=== PATIENT | female | born 1950 | race Caucasian/White ===

== ENCOUNTER 2017-03-07 21:22 | Inpatient (IN) | payer MEDICARE, OTHER ==
[~2017-03-07] VITALS: Ht 167.6 cm; Wt 97.5 kg
[2017-03-07 21:25] VITALS: BP 152/70; PULSE 91; RESP 16; TEMP 97.8; O2SAT 85
--- NOTE | 2017-03-07 21:42 | PD ---
HPI Chief Complaint: Respiratory Symptoms Time Seen by Provider: 21:31 Travel History International Travel<30 days: No Contact w/Intl Traveler<30days: No Traveled to known affect area: No History of Present Illness HPI 66-year-old female with history of COPD, 1 pack per day smoker, here for evaluation of cough and shortness of breath. Patient is visiting her family from [place]. Since January she has had 2 courses of antibiotics and is currently on a course of steroids for bronchitis. She was on Levaquin at first, then Keflex. Shortness of breath has worsened today at rest, worse with exertion. She has had a slight nonproductive cough. No hemoptysis. She denies chest pain. Dyspnea is at rest, worse with exertion. No history of DVT or PE. She is on Symbicort and takes albuterol nebulizer treatments. PFSH Past Medical History Respiratory: Yes (COPD) ?: Not Social History Tobacco Use: Yes Allergies-Medications (Allergen,Severity, Reaction): Coded Allergies: Sulfa (Sulfonamide Antibiotics) (Unverified Allergy, Severe, Nausea/ Vomiting, 03/08/17) codeine (Unverified Allergy, Mild, Nausea/Vomiting, 03/08/17) Reported Meds & Prescriptions Reported Meds & Active Scripts Active Review of Systems Except as stated in HPI: all other systems reviewed are Neg Physical Exam Narrative GENERAL: Well-developed, cachectic, mild to moderate respiratory distress SKIN: Focused skin assessment warm/dry. HEAD: Atraumatic. Normocephalic. EYES: Pupils equal and round. No scleral icterus. No injection or drainage. ENT: Mucous membranes pink and moist. NECK: Trachea midline. No JVD. CARDIOVASCULAR: Regular rate and rhythm. No murmur appreciated. RESPIRATORY: Mild to moderate respiratory distress, speaking full sentences, mild labored breathing with accessory muscle use with intercostal and supraclavicular retractions. Poor air movement bilaterally with wheezes throughout all lung bowers. No rales or rhonchi. GASTROINTESTINAL: Abdomen soft, non-tender, nondistended. MUSCULOSKELETAL: No obvious deformities. No clubbing. No cyanosis. No edema. No calf tenderness or swelling. NEUROLOGICAL: Awake and alert. No obvious cranial nerve deficits. Motor grossly within normal limits. Normal speech. PSYCHIATRIC: Appropriate mood and affect; insight and judgment normal. Data Data Last Documented VS Vital Signs Date Time Temp Pulse Resp B/P (MAP) Pulse Ox O2 Delivery O2 Flow Rate FiO2 03/07/17 22:44 82 16 133/67 (89) 97 Nasal Cannula 3.00 03/07/17 21:25 97.8 Orders Orders Complete Blood Count With Diff (03/07/17 21:39) Comprehensive Metabolic Panel (03/07/17 21:39) B-Type Natriuretic Peptide (03/07/17 21:39) Act Partial Throm Time (Ptt) (03/07/17 21:39) Prothrombin Time / Inr (Pt) (03/07/17 21:39) Ckmb (Isoenzyme) Profile (03/07/17 21:39) Troponin I (03/07/17 21:39) Influenzae A/B Antigen (03/07/17 21:39) Iv Access Insert/Monitor (03/07/17 21:39) Electrocardiogram (03/07/17 21:39) Ecg Monitoring (03/07/17 21:39) Oximetry (03/07/17 21:39) Oxygen Administration (03/07/17 21:39) Chest, Single Ap (03/07/17 21:39) Sodium Chloride 0.9% Flush (Ns Flush) (03/07/17 21:45) Methylprednisolone So Succ Inj (Solumedr (03/07/17 21:45) Albuterol-Ipratropium Neb (Duoneb Neb) (03/07/17 21:45) Arterial Blood Gas (Abg) (03/07/17 ) Sodium Chlor 0.9% 1000 Ml Inj (Ns 1000 M (03/07/17 22:34) CKMB (03/07/17 22:10) CKMB% (03/07/17 22:10) Ct Pulmonary Angiogram (03/07/17 23:09) Methylprednisolone So Succ Inj (Solumedr (03/08/17 00:00) Albuterol-Ipratropium Neb (Duoneb Neb) (03/07/17 23:15) Albuterol-Ipratropium Neb (Duoneb Neb) (03/08/17 08:00) Budeson-Formot 160-4.5 Mcg Inh (Symbicor (03/07/17 23:15) Guaifenesin Er (Mucinex Er) (03/08/17 09:00) Admit To Inpatient (03/07/17 ) Vital Signs (Adult) Q4H (03/07/17 23:08) Activity Oob Ad Sara (03/07/17 23:08) Diet Regular Basic (03/08/17 Breakfast) Sodium Chloride 0.9% Flush (Ns Flush) (03/07/17 23:15) Sodium Chloride 0.9% Flush (Ns Flush) (03/08/17 09:00) Ondansetron Inj (Zofran Inj) (03/07/17 23:15) Comprehensive Metabolic Panel (03/08/17 06:00) Complete Blood Count With Diff (03/08/17 06:00) Enoxaparin Inj (Lovenox Inj) (03/07/17 23:00) Acetaminophen (Tylenol) (03/07/17 23:15) Docusate Sodium-Senna (Radha-Colace) (03/08/17 09:00) Magnesium Hydroxide Liq (Milk Of Magnesi (03/07/17 23:15) Sennosides (Senokot) (03/07/17 23:15) Bisacodyl Supp (Dulcolax Supp) (03/07/17 23:15) Lactulose Liq (Lactulose Liq) (03/07/17 23:15) Inpatient Certification (03/07/17 ) Admit Order (Ed Use Only) (03/07/17 23:13) Labs Laboratory Tests Test 03/07/17 22:00 03/07/17 22:10 Blood Gas Puncture Site RT RADIAL Blood Gas Patient Temperature 98.6 Blood Gas HCO3 30 mmol/L Blood Gas Base Excess 5.1 mmol/L Blood Gas Oxygen Saturation 87 % Arterial Blood pH 7.35 Arterial Blood Partial Pressure CO2 56 mmHG Arterial Blood Partial Pressure O2 90 mmHG Arterial Blood Oxygen Content 16.9 Vol % Arterial Blood Carboxyhemoglobin 9.6 % Arterial Blood Methemoglobin 0.9 % Blood Gas Hemoglobin 13.8 G/DL Oxygen Delivery Device NASAL CANNULA Blood Gas Liter Flow 3 L/M White Blood Count 7.6 TH/MM3 Red Blood Count 4.45 MIL/MM3 Hemoglobin 13.4 GM/DL Hematocrit 41.9 % Mean Corpuscular Volume 94.2 FL Mean Corpuscular Hemoglobin 30.1 PG Mean Corpuscular Hemoglobin Concent 32.0 % Red Cell Distribution Width 12.7 % Platelet Count 197 TH/MM3 Mean Platelet Volume 6.4 FL Neutrophils (%) (Auto) 74.5 % Lymphocytes (%) (Auto) 12.8 % Monocytes (%) (Auto) 9.1 % Eosinophils (%) (Auto) 0.6 % Basophils (%) (Auto) 3.0 % Neutrophils # (Auto) 5.7 TH/MM3 Lymphocytes # (Auto) 1.0 TH/MM3 Monocytes # (Auto) 0.7 TH/MM3 Eosinophils # (Auto) 0.0 TH/MM3 Basophils # (Auto) 0.2 TH/MM3 CBC Comment DIFF FINAL Differential Comment Prothrombin Time 9.8 SEC Prothromb Time International Ratio 1.0 RATIO Activated Partial Thromboplast Time 28.2 SEC Blood Urea Nitrogen 14 MG/DL Creatinine 0.67 MG/DL Random Glucose 105 MG/DL Total Protein 6.8 GM/DL Albumin 3.6 GM/DL Calcium Level 8.1 MG/DL Alkaline Phosphatase 74 U/L Aspartate Amino Transf (AST/SGOT) 19 U/L Alanine Aminotransferase (ALT/SGPT) 23 U/L Total Bilirubin 0.8 MG/DL Sodium Level 127 MEQ/L Potassium Level 4.4 MEQ/L Chloride Level 90 MEQ/L Carbon Dioxide Level 32.5 MEQ/L Anion Gap 5 MEQ/L Estimat Glomerular Filtration Rate 88 ML/MIN Total Creatine Kinase 109 U/L Creatine Kinase MB 5.3 NG/ML Troponin I LESS THAN 0.02 NG/ML B-Type Natriuretic Peptide 43 PG/ML MDM Medical Decision Making Medical Screen Exam Complete: Yes Emergency Medical Condition: Yes Interpretation(s) EKG: Sinus, rate 91, normal axis, normal intervals, frequent supraventricular premature complexes, possible left atrial enlargement, no acute ischemic abnormality. Differential Diagnosis COPD exacerbation, pneumonia, pneumothorax, PE, ACS, bronchitis Narrative Course Patient's ABG shows a carboxyhemoglobinemia 9.6%. This is likely secondary to excessive smoking. PCO2 is 56.4, PO2 90.1 on 3 L nasal cannula Initial vital signs show heart rate 91, blood pressure 152/70, pulse ox 85% on room air, oral temp of 97.8F. CBC is essentially unremarkable. CMP is remarkable for sodium 127, chloride 90, bicarbonate 32.5, otherwise essentially unremarkable. Cardiac enzymes are negative. BNP is 43. Chest x-ray: CONCLUSION: Emphysema and patchy interstitial thickening. Patient was given 3 DuoNeb treatments and IV Solu-Medrol and reports feeling significantly improved. She has a slight carboxyhemoglobinemia which is likely secondary to heavy smoking. Because of her history of COPD, and set of high flow oxygen with 100% nonrebreather, she will be kept on 3 L nasal cannula. She is no longer in any respiratory distress after the 3 DuoNeb treatments, however she does have some slight end expiratory wheezes bilaterally. Chest x- ray does shows some granulomatous calcifications. CT of the chest will be ordered to look for cancer as she is also slightly hyponatremic. CT pulmonary angiogram will be done to also rule out a PE, however my suspicion is low for this. This study is pending at time of admission. Urine legionella antigen also ordered and is pending at time of admission. Case discussed with hospitalist Dr. Collins who will admit the patient to her service for further treatment and evaluation. Both the patient and the patient's daughter were made aware of all findings and plan and are amenable. Diagnosis Primary Impression: COPD exacerbation Additional Impressions: Carboxyhemoglobinemia Qualified Codes: T58.91XA - Toxic effect of carbon monoxide from unspecified source, accidental (unintentional), initial encounter Hyponatremia Admitting Information Admitting Physician Requests: Observation Antonio Frost MD Mar 07, 2017 21:42
[2017-03-07] MEDS ORDERED: SODIUM CHLORIDE 0.9% FLUSH 10 ML FLUSH IVF PRN (21:45)
[2017-03-07] MEDS ORDERED: methylPREDNISolone SOD SUCC 125 MG/2 ML VIAL IV PUSH ONE (21:45)
[2017-03-07] MEDS: RESP: ALBUTEROL 2.5 MG/IPRATROPIUM 0.5 MG NEB (SCH) INH ×2 (21:52→21:53)
[2017-03-07 22:05] VITALS: O2SAT 97
[2017-03-07 22:19] VITALS: O2SAT 98
[2017-03-07 22:24] LABS: AUTOMATED NEUTROPHIL # 5.7 TH/MM3 (1.8-7.7); BASOPHIL # 0.2 TH/MM3 (0-0.2); EOSINOPHIL % 0.6 % (0.0-4.0); HEMATOCRIT 41.9 % (35.0-46.0); HEMOGLOBIN 13.4 GM/DL (11.6-15.3); LYMPH % 12.8 % (9.0-44.0); MEAN CELL VOLUME 94.2 FL (80.0-100.0); MEAN CORPUSCULAR HEMOGLOBIN 30.1 PG (27.0-34.0); MEAN PLATELET VOLUME 6.4 FL (7.0-11.0); MONO % 9.1 % (0.0-8.0); MONOCYTE # 0.7 TH/MM3 (0-0.9); NEUT % 74.5 % (16.0-70.0); PLATELET COUNT 197 TH/MM3 (150-450); RED BLOOD COUNT 4.45 MIL/MM3 (4.00-5.30); RED CELL DISTRIBUTION WIDTH 12.7 % (11.6-17.2); WHITE BLOOD COUNT 7.6 TH/MM3 (4.0-11.0)
[2017-03-07 22:33] LABS: CHLORIDE 90 MEQ/L (98-107); SODIUM (NA) 127 MEQ/L (136-145)
[2017-03-07 22:36] LABS: CALCIUM 8.1 MG/DL (8.5-10.1)
[2017-03-07 22:37] LABS: ALBUMIN 3.6 GM/DL (3.4-5.0); BICARBONATE 32.5 MEQ/L (21.0-32.0); BLOOD UREA NITROGEN 14 MG/DL (7-18); GLUCOSE,RANDOM 105 MG/DL (74-106)
[2017-03-07] MEDS: SODIUM CHLOR 0.9% 1000 ML INJ 1,000 ML IV SCH (22:37)
[2017-03-07 22:39] LABS: PROTHROMBIN TIME - PATIENT 9.8 SEC (9.8-11.6)
[2017-03-07 22:40] LABS: ALT (GPT) 23 U/L (10-53); AST (GOT) 19 U/L (15-37); CREATININE 0.67 MG/DL (0.50-1.00); GLOMERULAR FILTRATION RATE 88 ML/MIN (>89)
[2017-03-07 22:41] LABS: TOTAL BILIRUBIN ADULT 0.8 MG/DL (0.2-1.0); TOTAL PROTEIN 6.8 GM/DL (6.4-8.2)
[2017-03-07 22:43] LABS: ALKALINE PHOSPHATASE 74 U/L (45-117)
[2017-03-07 22:44] VITALS: BP 133/67; PULSE 82; RESP 16; O2SAT 97
[2017-03-07 22:45] LABS: TROPONIN I LESS THAN 0.02 NG/ML (0.02-0.05)
--- NOTE | 2017-03-07 23:02 | RADRPT ---
EXAM DATE/TIME: 03/07/2017 22:32 [facility] COMPARISON: No previous studies available for comparison. INDICATIONS : Short of breath for two days. MEDICAL HISTORY : None. SURGICAL HISTORY : None. ENCOUNTER: Initial ACUITY: 2 days PAIN SCORE: 0/10 LOCATION: Bilateral chest FINDINGS: Moderate emphysema. Patchy mild interstitial thickening present bilaterally. Granulomatous calcificat ions in the left infrahilar region. No evidence of significant alveolar consolidation or pleural effu quita. Cardiac contours are satisfactory for technique and projection. CONCLUSION: Emphysema and patchy interstitial thickening. Julio Cohen MD on March 07, 2017 at 22:59 Board Certified Radiologist. This report was verified electronically.
[2017-03-07] MEDS ORDERED: ONDANSETRON HCL 4 MG/2 ML VIAL IVP PRN (23:15)
[2017-03-07] MEDS ORDERED: LACTULOSE SYRUP 20 GM/30 ML CUP PO PRN (23:15)
[2017-03-07] MEDS ORDERED: ACETAMINOPHEN 325 MG TAB PO PRN (23:15)
[2017-03-07] MEDS ORDERED: MAGNESIUM HYDROXIDE SUSP 30 ML CUP PO PRN (23:15)
[2017-03-07] MEDS ORDERED: BISACODYL 10 MG SUPP RECTAL PRN (23:15)
[2017-03-07] MEDS ORDERED: RESP: ALBUTEROL 2.5 MG/IPRATROPIUM 0.5 MG NEB (PRN) NEB (23:15)
[2017-03-07] MEDS ORDERED: SENNOSIDES 8.6 MG TAB PO PRN (23:15)
[2017-03-07] MEDS ORDERED: IOHEXOL 350 MG/ML 10 ML VIAL (for RAD DIAG) IVCONTRAST ONE (23:16)
[2017-03-07] MEDS: ENOXAPARIN SODIUM 40 MG/0.4 ML SYRINGE SQ SCH (23:42)
[2017-03-07 23:47] VITALS: BP 120/57; PULSE 103; RESP 16; O2SAT 95
--- NOTE | 2017-03-07 23:52 | RADRPT ---
EXAM DATE/TIME: 03/07/2017 23:20 [facility] COMPARISON: No previous studies available for comparison. INDICATIONS : Bronchitis, cough. IV CONTRAST: 74 cc Omnipaque 350 (iohexol) IV RADIATION DOSE: 5.48 CTDIvol (mGy) MEDICAL HISTORY : Chronic obstructive pulmonary disease. Hypertension. SURGICAL HISTORY : Tonsillectomy. Appendectomy.ganglion removed fropm rib ENCOUNTER: Initial ACUITY: 2 days PAIN SCALE: 0/10 LOCATION: chest TECHNIQUE: Volumetric scanning of the chest was performed using a pulmonary embolism protocol MIP images were re constructed. Using automated exposure control and adjustment of the mA and/or kV according to patien t size, radiation dose was kept as low as reasonably achievable to obtain optimal diagnostic quality images. DICOM format image data is available electronically for review and comparison. Follow-up recommendations for detected pulmonary nodules are based at a minimum on nodule size and pa tient risk factors according to Fleischner Society Guidelines. FINDINGS: PULMONARY ARTERIES: No filling defects are seen in the pulmonary arteries through the segmental level. LUNGS: Moderate severity centrilobular and paraseptal emphysema with upper lobe predominance. Mild patchy sc arring or atelectasis the upper lobes bilaterally. Mild tree in bud opacity in the lingula. No focal pulmonary consolidation. Hyperdensity is seen in the left lower lobe airways. Question aspirated [place] um. PLEURAE: There is no pleural thickening or pleural effusion. MEDIASTINUM: Coronary artery calcification. No enlarged lymph nodes. Trace pericardial effusion. Diffusely calcifi ed aorta. Aortic diameter are within normal limits. MUSCULOSKELETAL: Within normal limits for patient age. MISCELLANEOUS: The visualized upper abdominal organs demonstrate no acute abnormality. CONCLUSION: 1. No evidence of pulmonary most. 2. Moderate pulmonary emphysema. 3. Mild patchy atelectasis/inflammatory changes in the lungs. 4. Likely aspirated barium material in the left lower lobe. Bernard Mallory MD on March 07, 2017 at 23:46 Board Certified Radiologist. This report was verified electronically.
[2017-03-08] VITALS (9 sets, daily range): BP systolic 115–139; BP diastolic 53–69; PULSE 84–98; RESP 12–18; TEMP 96.6–97.8; O2SAT 93–99
[2017-03-08] MEDS: BUDESONIDE-FORMOTEROL 160/4.5 MCG INHALER INH SCH ×3 (00:02→21:24)
[2017-03-08] MEDS: methylPREDNISolone SOD SUCC 40 MG/1 ML VIAL IV PUSH SCH ×5 (00:03→23:11)
[2017-03-08] MEDS ORDERED: LISI-519 PO (01:14)
[2017-03-08] MEDS ORDERED: CITA20TA4 PO (01:14)
[2017-03-08] MEDS ORDERED: PRED20 PO (01:14)
[2017-03-08] MEDS ORDERED: IPRASOL INH (01:14)
[2017-03-08] MEDS ORDERED: VENTAER INH (01:14)
[2017-03-08] MEDS ORDERED: SYMB160A INH (01:14)
[2017-03-08] MEDS: SODIUM CHLORIDE 0.9% FLUSH 10 ML FLUSH IV FLUSH PRN ×2 (05:39→23:11)
[2017-03-08 05:59] LABS: AUTOMATED NEUTROPHIL # 4.4 TH/MM3 (1.8-7.7); BASOPHIL % 0.3 % (0.0-2.0); EOSINOPHIL % 0.6 % (0.0-4.0); HEMATOCRIT 41.2 % (35.0-46.0); HEMOGLOBIN 13.6 GM/DL (11.6-15.3); LYMPH % 3.5 % (9.0-44.0); LYMPHOCYTE # 0.2 TH/MM3 (1.0-4.8); MEAN CELL VOLUME 94.4 FL (80.0-100.0); MEAN CORPUSCULAR HEMOGLOBIN 31.1 PG (27.0-34.0); MEAN PLATELET VOLUME 6.8 FL (7.0-11.0); MONO % 0.7 % (0.0-8.0); NEUT % 94.9 % (16.0-70.0); PLATELET COUNT 184 TH/MM3 (150-450); RED BLOOD COUNT 4.36 MIL/MM3 (4.00-5.30); RED CELL DISTRIBUTION WIDTH 12.6 % (11.6-17.2); WHITE BLOOD COUNT 4.6 TH/MM3 (4.0-11.0)
[2017-03-08 06:05] LABS: CHLORIDE 94 MEQ/L (98-107); SODIUM (NA) 130 MEQ/L (136-145)
[2017-03-08 06:10] LABS: ALBUMIN 3.3 GM/DL (3.4-5.0); BICARBONATE 30.8 MEQ/L (21.0-32.0); CALCIUM 7.9 MG/DL (8.5-10.1)
[2017-03-08 06:11] LABS: BLOOD UREA NITROGEN 14 MG/DL (7-18); GLUCOSE,RANDOM 156 MG/DL (74-106)
[2017-03-08 06:14] LABS: ALT (GPT) 22 U/L (10-53); AST (GOT) 16 U/L (15-37); CREATININE 0.64 MG/DL (0.50-1.00); GLOMERULAR FILTRATION RATE 93 ML/MIN (>89)
[2017-03-08 06:15] LABS: TOTAL BILIRUBIN ADULT 0.5 MG/DL (0.2-1.0); TOTAL PROTEIN 6.5 GM/DL (6.4-8.2)
[2017-03-08 06:16] LABS: ALKALINE PHOSPHATASE 82 U/L (45-117)
[2017-03-08] MEDS: RESP: ALBUTEROL 2.5 MG/IPRATROPIUM 0.5 MG NEB (SCH) NEB ×4 (07:40→20:09)
--- NOTE | 2017-03-08 08:49 | HHI.HP ---
[facility] Unknown Admission Diagnosis COPD exacerbation, carboxyhemoglobinemia, hyponatremia Diagnoses: Chief Complaint: Shortness of breath Travel History International Travel<30 Days: No Contact w/Intl Traveler <30 Da: No Traveled to Known Affected Are: No History of Present Illness Written by Frances Johnson, acting as scribe for Dr. Anderson on 03/08/17 at 08:42. Ms. Jones is a 66-year-old female patient with a known medical history of COPD and tobacco abuse who presented to the ED with complaints of shortness of breath. Patient states that she went to urgent care for shortness of breath and chronic bronchitis, has been feeling "down" for 3 months. Does admit to wheezing and nonproductive cough. Does admit to lightheadedness and dizziness on presentation yesterday, Denies any recent fever, chills, headache, abdominal pain, nausea, vomiting, diarrhea, or dysuria. Denies any oxygen at home, did previously use O2 at home but has recently not needed it. Has recently moved here from [place] and has not established with a box stamper yet, COPD is a new diagnosis for her. Has recently completed a round of Levaquin and steroids 2 weeks ago which helped the patient. Does use nebulizer 4 x per day. Last hospitalized in May. Patient has recently stopped smoking and expressing motivation to get healthy. Going to establish a PCP in [facility]. Review of Systems Constitutional: DENIES: Fever, Chills Eyes: DENIES: Blurred vision, Diplopia Respiratory: COMPLAINS OF: Cough, Wheezing, Shortness of breath, DENIES: Sputum production Cardiovascular: DENIES: Chest pain Gastrointestinal: DENIES: Abdominal pain, Diarrhea, Nausea, Vomiting Genitourinary: DENIES: Urinary frequency, Urinary incontinence, Urgency Psychiatric: COMPLAINS OF: Anxiety Except as stated in HPI: all other systems reviewed are Neg Past Family Social History Past Medical History COPD Hypertension Anxiety Tobacco abuse Past Surgical History Appendectomy Tonsillectomy Ganglia on wrist Ankle surgery Reported Medications Active Reported Duoneb (Ipratropium-Albuterol Neb) 0.5-2.5 Mg/3 Ml Neb 1 Nebule INH DAILY Symbicort Inh (Budesonide/Formoterol Fumarate) 160-4.5 Mcg/Act Aero 2 Puff INH Q12HR Ventolin Hfa 18 GM Inh (Albuterol Sulfate) 90 Mcg/Act Aer 2 Puff INH Q4H PRN Prednisone 20 Mg Tab 20 Mg PO DIRECTED 40 MG twice a day x 3 days, then 20 MG daily x 3 days, then 10 MG daily x 3 days Citalopram (Citalopram Hydrobromide) 20 Mg Tab 20 Mg PO DAILY Lisinopril 5 Mg Tab 5 Mg PO DAILY Allergies: Coded Allergies: Sulfa (Sulfonamide Antibiotics) (Unverified Allergy, Severe, Nausea/ Vomiting, 03/08/17) codeine (Unverified Allergy, Mild, Nausea/Vomiting, 03/08/17) Active Ordered Medications Current Medications Medications (Trade) Dose Ordered Sig/Jenny Route Start Time Stop Time Status Last Admin (SoluMEDROL INJ) 40 mg Q6HR IV PUSH 03/08/17 00:00 03/08/17 05:39 (Duoneb Neb) 1 ampule Q2HR NEB PRN NEB 03/07/17 23:15 (Duoneb Neb) 1 ampule Q4HR WHILE AWAKE NEB NEB 03/08/17 08:00 03/08/17 07:40 (Symbicort 160-4.5 Mcg Inh) 2 puff Q12HR INH 03/07/17 23:15 03/08/17 00:02 (Mucinex Er) 600 mg BID PO 03/08/17 09:00 (NS Flush) 2 ml UNSCH PRN IV FLUSH 03/07/17 23:15 03/08/17 05:39 (NS Flush) 2 ml BID IV FLUSH 03/08/17 09:00 (Zofran Inj) 4 mg Q6H PRN IVP 03/07/17 23:15 (Lovenox Inj) 40 mg Q24H SQ 03/07/17 23:00 03/07/17 23:42 (Tylenol) 650 mg Q6H PRN PO 03/07/17 23:15 (Radha-Colace) 1 tab BID PO 03/08/17 09:00 (Milk Of Magnesia Liq) 30 ml Q12H PRN PO 03/07/17 23:15 (Senokot) 17.2 mg Q12H PRN PO 03/07/17 23:15 (Dulcolax Supp) 10 mg DAILY PRN RECTAL 03/07/17 23:15 (Lactulose Liq) 30 ml DAILY PRN PO 03/07/17 23:15 Family History Paternal medical history significant for blood clot. Maternal medical history significant for emphysema. Social History Smoked 1 ppd since the age of 13, has recently stopped smoking. Does admit to drinking a couple glasses of alcohol per day. Denies any illicit drug use. Physical Exam Vital Signs Vital Signs Date Time Temp Pulse Resp B/P (MAP) Pulse Ox O2 Delivery O2 Flow Rate FiO2 03/08/17 07:42 97 Nasal Cannula 3.00 03/08/17 04:00 97.3 84 18 115/53 (73) 94 03/08/17 01:03 88 16 120/56 (77) 98 Nasal Cannula 3.00 03/08/17 00:25 88 16 98 Nasal Cannula 3.00 03/08/17 00:00 97.3 84 18 115/53 (73) 94 03/07/17 23:47 103 16 120/57 (78) 95 Nasal Cannula 3.00 03/07/17 22:44 82 16 133/67 (89) 97 Nasal Cannula 3.00 03/07/17 22:19 98 Nasal Cannula 3.00 03/07/17 22:19 98 Nasal Cannula 3.00 03/07/17 22:05 97 Nasal Cannula 3.00 03/07/17 21:35 77 22 95 Nasal Cannula 3.00 03/07/17 21:25 97.8 91 16 152/70 (97) 85 Physical Exam GENERAL: This is a well-nourished, well-developed female patient, lying in bed on supplemental O2 2LNC, in no apparent distress. SKIN: No rashes, ecchymoses or lesions. Warm and dry. HEAD: Atraumatic. Normocephalic. EYES: Pupils equal round and reactive. Extraocular motions intact. No scleral icterus. No injection or drainage. ENT: Nose without bleeding, purulent drainage or septal hematoma. Throat without erythema, tonsillar hypertrophy or exudate. Uvula midline. Airway patent. NECK: Trachea midline. No JVD. Supple. CARDIOVASCULAR: Regular rate and rhythm without murmurs, gallops, or rubs. RESPIRATORY: Scattered diffused expiratory wheezing in posterior lung bowers. Breath sounds equal bilaterally. No wheezes, rales, or rhonchi. GASTROINTESTINAL: Abdomen soft, non-tender, nondistended. No guarding. Active Bs x 4 q. MUSCULOSKELETAL: Extremities without clubbing, cyanosis, or edema. No joint tenderness, effusion, or edema noted. NEUROLOGICAL: Awake and alert. Cranial nerves II through XII intact. Motor and sensory grossly within normal limits. Five out of 5 muscle strength in all muscle groups. Normal speech. Laboratory Laboratory Tests Test 03/07/17 22:00 03/07/17 22:10 03/08/17 05:25 Blood Gas Puncture Site RT RADIAL Blood Gas Patient Temperature 98.6 Blood Gas HCO3 30 Blood Gas Base Excess 5.1 Blood Gas Oxygen Saturation 87 Arterial Blood pH 7.35 Arterial Blood Partial Pressure CO2 56 Arterial Blood Partial Pressure O2 90 Arterial Blood Oxygen Content 16.9 Arterial Blood Carboxyhemoglobin 9.6 Arterial Blood Methemoglobin 0.9 Blood Gas Hemoglobin 13.8 Oxygen Delivery Device NASAL CANNULA Blood Gas Liter Flow 3 White Blood Count 7.6 4.6 Red Blood Count 4.45 4.36 Hemoglobin 13.4 13.6 Hematocrit 41.9 41.2 Mean Corpuscular Volume 94.2 94.4 Mean Corpuscular Hemoglobin 30.1 31.1 Mean Corpuscular Hemoglobin Concent 32.0 33.0 Red Cell Distribution Width 12.7 12.6 Platelet Count 197 184 Mean Platelet Volume 6.4 6.8 Neutrophils (%) (Auto) 74.5 94.9 Lymphocytes (%) (Auto) 12.8 3.5 Monocytes (%) (Auto) 9.1 0.7 Eosinophils (%) (Auto) 0.6 0.6 Basophils (%) (Auto) 3.0 0.3 Neutrophils # (Auto) 5.7 4.4 Lymphocytes # (Auto) 1.0 0.2 Monocytes # (Auto) 0.7 0.0 Eosinophils # (Auto) 0.0 0.0 Basophils # (Auto) 0.2 0.0 CBC Comment DIFF FINAL DIFF FINAL Differential Comment Prothrombin Time 9.8 Prothromb Time International Ratio 1.0 Activated Partial Thromboplast Time 28.2 Blood Urea Nitrogen 14 14 Creatinine 0.67 0.64 Random Glucose 105 156 Total Protein 6.8 6.5 Albumin 3.6 3.3 Calcium Level 8.1 7.9 Alkaline Phosphatase 74 82 Aspartate Amino Transf (AST/SGOT) 19 16 Alanine Aminotransferase (ALT/SGPT) 23 22 Total Bilirubin 0.8 0.5 Sodium Level 127 130 Potassium Level 4.4 5.1 Chloride Level 90 94 Carbon Dioxide Level 32.5 30.8 Anion Gap 5 5 Estimat Glomerular Filtration Rate 88 93 Total Creatine Kinase 109 Creatine Kinase MB 5.3 Troponin I LESS THAN 0.02 B-Type Natriuretic Peptide 43 Date/Time Source Procedure Growth Status 03/07/17 22:20 Nasal Washing Influenza Types A,B Antigen (FROILAN) - Final NEGATIVE FOR FLU A AND B ANTIGEN.... Complete 03/08/17 00:35 Urine Clean Catch Legionella Antigen Pending Received Result Diagram: 03/08/17 0525 03/08/17 [address] Angiography 03/07/172308 Signed Impressions: Service Date/Time: February 23:20 - CONCLUSION: 1. No evidence of pulmonary most. 2. Moderate pulmonary emphysema. 3. Mild patchy atelectasis/inflammatory changes in the lungs. 4. Likely aspirated barium material in the left lower lobe. Bernard Mallory MD Chest X-Ray 03/07/172138 Signed Impressions: Service Date/Time: February 22:32 - CONCLUSION: Emphysema and patchy interstitial thickening. Julio Cohen MD Septic Shock Reassessment Septic shock perfusion: reassessment completed Caprini VTE Risk Assessment Caprini VTE Risk Assessment: Mod/High Risk (score >= 2) Caprini Risk Assessment Model Point Value = 1 Point Value = 2 Point Value = 3 Point Value = 5 Age 41-60 Minor surgery BMI > 25 kg/m2 Swollen legs Varicose veins or History of unexplained or recurrent spontaneous Oral contraceptives or hormone replacement Sepsis (< 1 month) Serious lung disease, including pneumonia (< 1 month) Abnormal pulmonary function Acute myocardial infarction Congestive heart failure (< 1 month) History of inflammatory bowel disease Medical patient at bed rest Age 61-74 Arthroscopic surgery Major open surgery (> 45 min) Laparoscopic surgery (> 45 min) Malignancy Confined to bed (> 72 hours) Immobilizing plaster cast Central venous access Age >= 75 History of VTE Family history of VTE Factor V Leiden Prothrombin [id number] Lupus anticoagulant Anticardiolipin antibodies Elevated serum homocysteine Heparin-induced thrombocytopenia Other congenital or acquired thrombophilia Stroke (< 1 month) Elective arthroplasty Hip, pelvis, or leg fracture Acute spinal cord injury (< 1 month) Prophylaxis Regimen Total Risk Factor Score Risk Level Prophylaxis Regimen 0-1 Low Early ambulation 2 Moderate Order ONE of the following: *Sequential Compression Device (SCD) *Heparin 5000 units SQ BID 3-4 Higher Order ONE of the following medications: *Heparin 5000 units SQ TID *Enoxaparin/Lovenox 40 mg SQ daily (WT < 150 kg, CrCl > 30 mL/min) *Enoxaparin/Lovenox 30 mg SQ daily (WT < 150 kg, CrCl > 10-29 mL/min) *Enoxaparin/Lovenox 30 mg SQ BID (WT < 150 kg, CrCl > 30 mL/min) AND/OR *Sequential Compression Device (SCD) 5 or more Highest Order ONE of the following medications: *Heparin 5000 units SQ TID (Preferred with Epidurals) *Enoxaparin/Lovenox 40 mg SQ daily (WT < 150 kg, CrCl > 30 mL/min) *Enoxaparin/Lovenox 30 mg SQ daily (WT < 150 kg, CrCl > 10-29 mL/min) *Enoxaparin/Lovenox 30 mg SQ BID (WT < 150 kg, CrCl > 30 mL/min) AND *Sequential Compression Device (SCD) Assessment and Plan Problem List: (1) COPD exacerbation ICD Code: J44.1 - Chronic obstructive pulmonary disease with (acute) exacerbation Status: Acute (2) Carboxyhemoglobinemia ICD Code: T58.91XA - Toxic effect of carbon monoxide from unspecified source, accidental (unintentional), initial encounter Status: Acute (3) Hyponatremia ICD Code: E87.1 - Hypo-osmolality and hyponatremia Status: Acute Assessment and Plan Ms. Jones is a 66-year-old female patient with a known medical history of COPD and tobacco abuse who presented to the ED with complaints of shortness of breath. Acute on chronic COPD in exacerbation Cough suspect secondary to above CXR reviewed showing emphysema and patchy interstitial thickening. CTA reviewed showing no evidence of PE. Moderate pulmonary emphysema. Mild patchy atelectasis/inflammatory changes in the lungs. Likely aspirated barium content in the left lower lobe. Blood gas reviewed, ph 7.35. Co2 56. Carboxyhemoglobin 9.6. Currently on 3 L NC, continue supplemental O2 as needed. Duonebs available scheduled and PRN. Continue home inhalers. Continue scheduled Methylprednisolone 40 mg IV q6hr Will continue guaifenesin for congestion. Supportive care. Hyponatremia: Na 127 --> 130. Improving. Now tolerating eating and drinking. Monitor fluid status. Tobacco abuse: Counselled on cessation. DVT prophylaxis: SCDs. Lovenox. This note was transcribed by JOSLEYN Bro . I, Dr. Linda Anderson personally performed the history, physical exam, and medical decision making; and confirmed the accuracy of the information in the transcribed note. Authenticated by Dr. Linda Anderson on 03/08/17 at 08:42. Physician Certification 2 Midnight Certification Type: Admission for Inpatient Services Order for Inpatient Services The services are ordered in accordance with Medicare regulations or non- Medicare payer requirements, as applicable. In the case of services not specified as inpatient-only, they are appropriately provided as inpatient services in accordance with the 2-midnight benchmark. Estimated LOS (days): 2 2 days is the estimated time the patient will need to remain in the hospital, assuming treatment plan goals are met and no additional complications. Post-Hospital Plan: Home Problem Qualifiers (1) Carboxyhemoglobinemia: Qualified Codes: T58.91XA - Toxic effect of carbon monoxide from unspecified source, accidental (unintentional), initial encounter Francse Johnson Mar 08, 2017 08:49 Linda Anderson MD Mar 08, 2017 20:07
[2017-03-08] MEDS: SODIUM CHLOR 0.9% 1000 ML INJ 1,000 ML IV SCH (10:27)
[2017-03-08] MEDS: DOCUSATE SODIUM 50 MG/SENNA 8.6 MG TAB PO SCH ×3 (10:28→21:23)
[2017-03-08] MEDS: SODIUM CHLORIDE 0.9% FLUSH 10 ML FLUSH IV FLUSH SCH ×2 (10:28→21:22)
[2017-03-08] MEDS: guaiFENesin E.R. 600 MG TAB PO SCH ×2 (10:28→21:23)
--- NOTE | 2017-03-08 14:08 | EKG ---
Date Performed: 03/07/2017 Time Performed: 21:50:13 PTAGE: 66 years EKG: Sinus rhythm WITH FREQUENT SUPRAVENTRICULAR PREMATURE COMPLEXES POSSIBLE LEFT ATRIAL ENLARGEMENT ABNORMAL RHYTHM ECG NO PREVIOUS TRACING DOCTOR: Davin Robles Interpretating Date/Time 03/08/2017 14:06:48
[2017-03-08] MEDS: ENOXAPARIN SODIUM 40 MG/0.4 ML SYRINGE SQ SCH (23:11)
[2017-03-09] VITALS (7 sets, daily range): BP systolic 119–162; BP diastolic 59–75; PULSE 72–106; RESP 18–20; TEMP 96.3–98.2; O2SAT 94–99
[2017-03-09] MEDS: SODIUM CHLORIDE 0.9% FLUSH 10 ML FLUSH IV FLUSH PRN (06:17)
[2017-03-09] MEDS: methylPREDNISolone SOD SUCC 40 MG/1 ML VIAL IV PUSH SCH ×3 (06:17→18:33)
[2017-03-09] MEDS: RESP: ALBUTEROL 2.5 MG/IPRATROPIUM 0.5 MG NEB (SCH) NEB ×4 (07:35→19:57)
--- NOTE | 2017-03-09 08:44 | HHI.PR ---
Subjective Remarks Feels better, less wheezing, no chest pain shortness of breath has improved significantly. Says she has oxygen back home however she did not bring the machine with her here. She failed the walking test. No fever or chills overnight Objective Vitals Vital Signs Date Time Temp Pulse Resp B/P (MAP) Pulse Ox O2 Delivery O2 Flow Rate FiO2 03/09/17 07:35 95 Nasal Cannula 2.00 03/09/17 00:00 96.3 106 18 119/68 (85) 98 03/08/17 20:09 94 Nasal Cannula 2.00 03/08/17 20:00 97.5 93 18 133/60 (84) 95 03/08/17 16:00 97.8 88 16 137/62 (87) 93 03/08/17 12:00 97.8 98 12 139/68 (91) 94 I/O 03/08/17 03/08/17 03/08/17 03/09/17 03/09/17 03/09/17 07:00 15:00 23:00 07:00 15:00 23:00 Intake Total 853 ml 120 ml 1625 ml 240 ml Balance 853 ml 120 ml 1625 ml 240 ml Intake Oral 340 ml 120 ml 240 ml 240 ml IV Total 513 ml 1385 ml # Voids 3 7 3 # Bowel Movements 0 2 Result Diagram: 03/08/1752403/08/[address] Angiography 03/07/172308 Signed Impressions: Service Date/Time: February 23:20 - CONCLUSION: 1. No evidence of pulmonary most. 2. Moderate pulmonary emphysema. 3. Mild patchy atelectasis/inflammatory changes in the lungs. 4. Likely aspirated barium material in the left lower lobe. Bernard Mallory MD Chest X-Ray 03/07/172138 Signed Impressions: Service Date/Time: February 22:32 - CONCLUSION: Emphysema and patchy interstitial thickening. Julio Cohen MD Objective Remarks GENERAL: This is a well-nourished, well-developed female patient, lying in bed on supplemental O2 2LNC, in no apparent distress. CARDIOVASCULAR: Regular rate and rhythm without murmurs, gallops, or rubs. RESPIRATORY: Scattered diffused expiratory wheezing in posterior lung bowers. Breath sounds equal bilaterally. No wheezes, rales, or rhonchi. GASTROINTESTINAL: Abdomen soft, non-tender, nondistended. No guarding. Active Bs x 4 q. MUSCULOSKELETAL: Extremities without clubbing, cyanosis, or edema. No joint tenderness, effusion, or edema noted. NEUROLOGICAL: Awake and alert. Cranial nerves II through XII intact. Motor and sensory grossly within normal limits. Five out of 5 muscle strength in all muscle groups. Normal speech. A/P Problem List: (1) COPD exacerbation ICD Code: J44.1 - Chronic obstructive pulmonary disease with (acute) exacerbation Status: Acute (2) Carboxyhemoglobinemia ICD Code: T58.91XA - Toxic effect of carbon monoxide from unspecified source, accidental (unintentional), initial encounter Status: Acute (3) Hyponatremia ICD Code: E87.1 - Hypo-osmolality and hyponatremia Status: Acute Assessment and Plan Ms. Jones is a 66-year-old female patient with a known medical history of COPD and tobacco abuse who presented to the ED with complaints of shortness of breath. Acute on chronic COPD in exacerbation Cough suspect secondary to above CXR reviewed showing emphysema and patchy interstitial thickening. CTA reviewed showing no evidence of PE. Moderate pulmonary emphysema. Mild patchy atelectasis/inflammatory changes in the lungs. Likely aspirated barium content in the left lower lobe. Blood gas reviewed, ph 7.35. Co2 56. Carboxyhemoglobin 9.6. Currently on 3 L NC, continue supplemental O2 as needed. Duonebs available scheduled and PRN. Continue home inhalers. Continue scheduled Methylprednisolone 40 mg IV q6hr Will continue guaifenesin for congestion. Supportive care. Hyponatremia: Na 127 on admission, Improving. Now tolerating eating and drinking. Monitor fluid status. Tobacco abuse: Counselled on cessation. DVT prophylaxis: SCDs. Lovenox. Failed oxygen walking test needs oxygen at home case management consulted for discharge planning Discharge Planning DC home in stable condition to follow up as OP with PCP and consultants. Diet: Healthy heart diet Activity ad darshana as tolerated Meds per med reconciliations Problem Qualifiers (1) Carboxyhemoglobinemia: Qualified Codes: T58.91XA - Toxic effect of carbon monoxide from unspecified source, accidental (unintentional), initial encounter Linda Anderson MD Mar 09, 2017 08:44
[2017-03-09] MEDS: DOCUSATE SODIUM 50 MG/SENNA 8.6 MG TAB PO SCH ×2 (08:52→21:00)
[2017-03-09] MEDS: BUDESONIDE-FORMOTEROL 160/4.5 MCG INHALER INH SCH ×2 (08:53→21:45)
[2017-03-09] MEDS: SODIUM CHLORIDE 0.9% FLUSH 10 ML FLUSH IV FLUSH SCH ×2 (08:53→21:45)
[2017-03-09] MEDS: guaiFENesin E.R. 600 MG TAB PO SCH ×2 (08:53→21:46)
[2017-03-09 11:11] LABS: BICARBONATE 29.9 MEQ/L (21.0-32.0); CALCIUM 7.9 MG/DL (8.5-10.1); CREATININE 0.81 MG/DL (0.50-1.00)
[2017-03-09] MEDS ORDERED: PRED20 PO (13:27)
--- NOTE | 2017-03-09 13:28 | HHI.DCPOC ---
Discharge Care Plan Goals to Promote Your Health * To prevent worsening of your condition and complications * To maintain your health at the optimal level Directions to Meet Your Goals Take your medications as prescribed Follow your dietary instruction Follow activity as directed Keep your appointments as scheduled Take your immunizations and boosters as scheduled If your symptoms worsen call your PCP, if no PCP go to Urgent Care Center or Emergency Room Smoking is Dangerous to Your Health. Avoid second hand smoke Call the 24-hour hour crisis hotline for domestic abuse at Linda Anderson MD Mar 09, 2017 13:28
[2017-03-09] MEDS ORDERED: CEFU1TAB18 PO (13:30)
[2017-03-09] MEDS ORDERED: LACTCHW3 CHEW (13:30)
[2017-03-09] MEDS ORDERED: OXYGENDME NAS.CANULA (13:31)
[2017-03-09] MEDS ORDERED: Albuterol-Ipratropium Neb NEB (15:22)
[2017-03-09] MEDS: ENOXAPARIN SODIUM 40 MG/0.4 ML SYRINGE SQ SCH (21:46)
[2017-03-10] VITALS: BP 132/63; PULSE 82; RESP 20; TEMP 96.7; O2SAT 95
[2017-03-10] MEDS: methylPREDNISolone SOD SUCC 40 MG/1 ML VIAL IV PUSH SCH ×3 (01:01→11:48)
[2017-03-10] MEDS: SODIUM CHLORIDE 0.9% FLUSH 10 ML FLUSH IV FLUSH PRN (01:01)
[2017-03-10] MEDS: RESP: ALBUTEROL 2.5 MG/IPRATROPIUM 0.5 MG NEB (SCH) NEB ×3 (07:27→16:23)
[2017-03-10 07:30] VITALS: O2SAT 98
[2017-03-10 08:00] VITALS: BP 147/69; PULSE 92; RESP 20; TEMP 96.8; O2SAT 91
--- NOTE | 2017-03-10 09:32 | HHI.PR ---
Subjective Remarks Feels much better. no more wheezing. No n/v/d/c. 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 No fever or chills. Awaiting for O2 delivery as patient failed O2 test and required O2 at home Objective Vitals Vital Signs Date Time Temp Pulse Resp B/P (MAP) Pulse Ox O2 Delivery O2 Flow Rate FiO2 03/10/17 08:00 96.8 92 20 147/69 (95) 91 03/10/17 07:30 98 Nasal Cannula 2.00 03/10/17 00:00 96.7 82 20 132/63 (86) 95 03/09/17 20:00 97.0 91 20 142/70 (94) 95 03/09/17 19:57 97 Nasal Cannula 2.00 03/09/17 15:50 97.3 82 20 155/74 (101) 94 03/09/17 11:50 98.2 84 20 129/59 (82) 96 I/O 03/09/17 03/09/17 03/09/17 03/10/17 03/10/17 03/10/17 07:00 15:00 23:00 07:00 15:00 23:00 Intake Total 240 ml 1410 ml 480 ml Balance 240 ml 1410 ml 480 ml Intake Oral 240 ml 1410 ml 480 ml # Voids 3 7 3 # Bowel Movements 1 1 Result Diagram: 03/08/17 0525 03/09/17 0956 Objective Remarks GENERAL: This is a well-nourished, well-developed female patient, lying in bed on supplemental O2 2LNC, in no apparent distress. CARDIOVASCULAR: Regular rate and rhythm without murmurs, gallops, or rubs. RESPIRATORY: Scattered diffused expiratory wheezing in posterior lung bowers. Breath sounds equal bilaterally. No wheezes, rales, or rhonchi. GASTROINTESTINAL: Abdomen soft, non-tender, nondistended. No guarding. Active Bs x 4 q. MUSCULOSKELETAL: Extremities without clubbing, cyanosis, or edema. No joint tenderness, effusion, or edema noted. NEUROLOGICAL: Awake and alert. Cranial nerves II through XII intact. Motor and sensory grossly within normal limits. Five out of 5 muscle strength in all muscle groups. Normal speech. A/P Problem List: (1) COPD exacerbation ICD Code: J44.1 - Chronic obstructive pulmonary disease with (acute) exacerbation Status: Acute (2) Carboxyhemoglobinemia ICD Code: T58.91XA - Toxic effect of carbon monoxide from unspecified source, accidental (unintentional), initial encounter Status: Acute (3) Hyponatremia ICD Code: E87.1 - Hypo-osmolality and hyponatremia Status: Acute Assessment and Plan Ms. Jones is a 66-year-old female patient with a known medical history of COPD and tobacco abuse who presented to the ED with complaints of shortness of breath. Acute on chronic COPD in exacerbation Cough suspect secondary to above CXR reviewed showing emphysema and patchy interstitial thickening. CTA reviewed showing no evidence of PE. Moderate pulmonary emphysema. Mild patchy atelectasis/inflammatory changes in the lungs. Likely aspirated barium content in the left lower lobe. Blood gas reviewed, ph 7.35. Co2 56. Carboxyhemoglobin 9.6. Currently on 3 L NC, continue supplemental O2 as needed. Duonebs available scheduled and PRN. Continue home inhalers. Continue scheduled Methylprednisolone 40 mg IV q6hr Will continue guaifenesin for congestion. Supportive care. Hyponatremia: Na 127 on admission, Improving. Now tolerating eating and drinking. Monitor fluid status. Tobacco abuse: Counselled on cessation. DVT prophylaxis: SCDs. Lovenox. Failed oxygen walking test needs oxygen at home case management consulted for discharge planning Discharge Planning DC home in stable condition to follow up as OP with PCP and consultants. Diet: Healthy heart diet Activity ad darshana as tolerated Meds per med reconciliations Problem Qualifiers (1) Carboxyhemoglobinemia: Qualified Codes: T58.91XA - Toxic effect of carbon monoxide from unspecified source, accidental (unintentional), initial encounter Linda Anderson MD Mar 10, 2017 09:32
[2017-03-10] MEDS: BUDESONIDE-FORMOTEROL 160/4.5 MCG INHALER INH SCH (11:48)
[2017-03-10] MEDS: DOCUSATE SODIUM 50 MG/SENNA 8.6 MG TAB PO SCH (11:49)
[2017-03-10] MEDS: SODIUM CHLORIDE 0.9% FLUSH 10 ML FLUSH IV FLUSH SCH (11:49)
[2017-03-10] MEDS: guaiFENesin E.R. 600 MG TAB PO SCH (11:49)
[2017-03-10 12:00] VITALS: BP 138/77; PULSE 87; RESP 20; TEMP 97.7; O2SAT 95
[2017-03-10] MEDS ORDERED: VENTAER INH (14:22)
[2017-03-10] MEDS ORDERED: IPRASOL INH (14:22)
[2017-03-10] MEDS ORDERED: SYMB160A INH (14:22)
[2017-03-10 16:00] VITALS: BP 162/81; PULSE 80; RESP 20; TEMP 97.7; O2SAT 94
--- NOTE | 2017-03-11 00:26 | HHI.DS ---
Discharge Summary Admission Date Mar 07, 2017 at 23:15 Discharge Date: Mar 10, 2017 Admitting Diagnosis COPD exacerbation, carboxyhemoglobinemia, hyponatremia (1) COPD exacerbation ICD Code: J44.1 - Chronic obstructive pulmonary disease with (acute) exacerbation Status: Acute (2) Carboxyhemoglobinemia ICD Code: T58.91XA - Toxic effect of carbon monoxide from unspecified source, accidental (unintentional), initial encounter Status: Acute (3) Hyponatremia ICD Code: E87.1 - Hypo-osmolality and hyponatremia Status: Acute Procedures none Brief History - From Admission Written by Frances Johnson, acting as scribe for Dr. Anderson on 03/08/17 at 08:42. Ms. Jones is a 66-year-old female patient with a known medical history of COPD and tobacco abuse who presented to the ED with complaints of shortness of breath. Patient states that she went to urgent care for shortness of breath and chronic bronchitis, has been feeling "down" for 3 months. Does admit to wheezing and nonproductive cough. Does admit to lightheadedness and dizziness on presentation yesterday, Denies any recent fever, chills, headache, abdominal pain, nausea, vomiting, diarrhea, or dysuria. Denies any oxygen at home, did previously use O2 at home but has recently not needed it. 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 Has recently completed a round of Levaquin and steroids 2 weeks ago which helped the patient. Does use nebulizer 4 x per day. Last hospitalized in May. Patient has recently stopped smoking and expressing motivation to get healthy. Going to establish a PCP in [facility]. CBC/BMP: 03/08/17 0525 03/09/17 0956 Significant Findings Laboratory Tests Test 03/08/17 05:25 03/08/17 12:06 03/09/17 09:56 Mean Platelet Volume 6.8 FL (7.0-11.0) Neutrophils (%) (Auto) 94.9 % (16.0-70.0) Lymphocytes (%) (Auto) 3.5 % (9.0-44.0) Lymphocytes # (Auto) 0.2 TH/MM3 (1.0-4.8) Random Glucose 156 MG/DL (74-106) 213 MG/DL (74-106) Albumin 3.3 GM/DL (3.4-5.0) Calcium Level 7.9 MG/DL (8.5-10.1) 7.9 MG/DL (8.5-10.1) Sodium Level 130 MEQ/L (136-145) 133 MEQ/L (136-145) Chloride Level 94 MEQ/L (98-107) 95 MEQ/L (98-107) Blood Gas HCO3 29 mmol/L (22-26) Blood Gas Base Excess 3.2 mmol/L (-2-2) Arterial Blood pH 7.30 (7.380-7.420) Arterial Blood Partial Pressure CO2 62 mmHG (38-42) Estimat Glomerular Filtration Rate 71 ML/MIN (>89) Imaging Last Impressions CT Angiography 03/07/172308 Signed Impressions: Service Date/Time: February 23:20 - CONCLUSION: 1. No evidence of pulmonary most. 2. Moderate pulmonary emphysema. 3. Mild patchy atelectasis/inflammatory changes in the lungs. 4. Likely aspirated barium material in the left lower lobe. Bernard Mallory MD Chest X-Ray 03/07/172138 Signed Impressions: Service Date/Time: February 22:32 - CONCLUSION: Emphysema and patchy interstitial thickening. Julio Cohen MD PE at Discharge GENERAL: This is a well-nourished, well-developed female patient, lying in bed on supplemental O2 2LNC, in no apparent distress. CARDIOVASCULAR: Regular rate and rhythm without murmurs, gallops, or rubs. RESPIRATORY: Scattered diffused expiratory wheezing in posterior lung bowers. Breath sounds equal bilaterally. No wheezes, rales, or rhonchi. GASTROINTESTINAL: Abdomen soft, non-tender, nondistended. No guarding. Active Bs x 4 q. MUSCULOSKELETAL: Extremities without clubbing, cyanosis, or edema. No joint tenderness, effusion, or edema noted. NEUROLOGICAL: Awake and alert. Cranial nerves II through XII intact. Motor and sensory grossly within normal limits. Five out of 5 muscle strength in all muscle groups. Normal speech. Hospital Course Ms. Jones is a 66-year-old female patient with a known medical history of COPD and tobacco abuse who presented to the ED with complaints of shortness of breath. Acute on chronic COPD in exacerbation Cough suspect secondary to above CXR reviewed showing emphysema and patchy interstitial thickening. CTA reviewed showing no evidence of PE. Moderate pulmonary emphysema. Mild patchy atelectasis/inflammatory changes in the lungs. Likely aspirated barium content in the left lower lobe. Blood gas reviewed, ph 7.35. Co2 56. Carboxyhemoglobin 9.6. Currently on 3 L NC, continue supplemental O2 as needed. Duonebs available scheduled and PRN. Continue home inhalers. Continue scheduled Methylprednisolone 40 mg IV q6hr Will continue guaifenesin for congestion. Supportive care. Hyponatremia: Na 127 on admission, Improving. Now tolerating eating and drinking. Monitor fluid status. Tobacco abuse: Counselled on cessation. DVT prophylaxis: SCDs. Lovenox. Failed oxygen walking test needs oxygen at home case management consulted for discharge Pt Condition on Discharge: Stable Discharge Disposition: Discharge Home Discharge Time: > 30 minutes Discharge Instructions DIET: Follow Instructions for: Heart Healthy Diet Activities you can perform: Regular-No Restrictions Follow up Referrals: PCP Follow-up - 2-3 Days Pulmonology - 1 Week New Medications: Cefuroxime (Ceftin) 250 Mg Tab 250 MG PO BID for INFECTIOIN, #14 TAB Lactobacillus Acidophilus (Lactinex) 1 Chew 1 TAB CHEW BID for Nutritional Supplement, #60 TAB 0 Refills Oxygen (O2) (Oxygen (O2)) Device LITER DAYSI.CANULA CONTINUOUS for Prevent Hypoxemia, #2 Oxygen Concentrator Portable Gaseous 2 L/min via Nasal Canula Continuous For 99 months [Albuterol-Ipratropium Neb] () 1 AMPULE NEBU 1 AMPULE NEB Q2HR NEB PRN for SOB/WHEEZING Continued Medications: Albuterol 18 GM Inh (Ventolin Hfa 18 GM Inh) 90 Mcg/Act Aer 2 PUFF INH Q4H PRN for SHORTNESS OF BREATH, #1 INHALER 0 Refills (This prescription has been renewed) Budesonide-Formoterol Inh (Symbicort Inh) 160-4.5 Mcg/Act Aero 2 PUFF INH Q12HR, #1 INHALER 0 Refills (This prescription has been renewed) Citalopram (Citalopram) 20 Mg Tab 20 MG PO DAILY for Control Depression, #30 TAB 0 Refills Ipratropium-Albuterol Neb (Duoneb) 0.5-2.5 Mg/3 Ml Neb 1 NEBULE INH DAILY for Breathing Treatment, #30 NEBULE 0 Refills (This prescription has been renewed) Lisinopril (Lisinopril) 5 Mg Tab 5 MG PO DAILY for Blood Pressure Management, #30 TAB 0 Refills Prednisone (Prednisone) 20 Mg Tab 20 MG PO DIRECTED for Inflammation, #11 TAB 0 Refills (This prescription has been renewed) 40 MG twice a day x 3 days, then 20 MG daily x 3 days, then 10 MG daily x 3 days Linda Anderson MD Mar 11, 2017 00:26
== END 2017-03-10 18:15 | disposition home or self-care (01) | DRG 191 ==
LOC: PHED 21:22 → PHEDA 23:15 → OBSVTOIN 23:15 → PH3B 03-08 00:49
PROVIDERS: ADMIT Hospitalist; ATTEND Hospitalist
DX: J44.1 Chronic obstructive pulmonary disease with (acute) exacerbation (principal); E87.1 Hypo-osmolality and hyponatremia; I10 Essential (primary) hypertension; J98.11 Atelectasis; F17.210 Nicotine dependence, cigarettes, uncomplicated; F41.9 Anxiety disorder, unspecified
CPT/HCPCS: 36600; 71010; 71275; 80048; 80053; 82550; 82552; 82805; 83880; 84484; 85025; 85610; 85730; 87449; 87804; 93005; 94620; 94640; 94664; 96361; 96374; J1650; J2920; J2930; J7030; Q9967

== ENCOUNTER 2018-03-03 17:38 | Inpatient (IN) ==
[2018-03-03] MEDS ORDERED: MethylPREDNISolone Sod Succinate Inj 125 MG/2 ML Vial IV.PUSH ONE (17:46)
--- NOTE | 2018-03-03 17:54 | ED ---
HPI General Chief complaint: Respiratory Symptoms Stated complaint: sob Time Seen by Provider: 03/03/18 17:40 History of Present Illness HPI narrative: The patient was seen and examined in the presence of the nurse. This patient is complaining of shortness of breath. She has COPD and is nebulizer dependent. She has a machine at home but did not use it today. She is still smoking. Denies fever or chest pain. She has a chronic cough. It is dry. Severity is moderate. No alleviating factors. No exacerbating factors. Initial room air saturation was 88 on room air. She is 96 on 2 L. Related Data Home Medications Medication Instructions Recorded Confirmed Wellbutrin XL 150 mg PO DAILY 03/03/18 03/03/18 albuterol sulfate 1.25 mg INHALATION QID 03/03/18 03/03/18 albuterol sulfate [Ventolin HFA] 1 puff INHALATION Q4-6H PRN 03/03/18 03/03/18 [id number]-[id number] 1 inh INHALATION DAILY 03/03/18 03/03/18 [Trelegy Ellipta] Allergies Allergy/AdvReac Type Severity Reaction Status Date / Time Sulfa (Sulfonamide Allergy Severe Nausea/Vomi Verified 03/03/18 17:45 Antibiotics) ting codeine Allergy Mild Nausea/Vomi Verified 03/03/18 17:45 ting Review of Systems ROS: all other systems reviewed are negative [facility] Medical History Medical History History of depression (Acute) Surgical History Surgical History History of ankle surgery (Acute) Hx of appendectomy (Acute) Hx of tonsillectomy (Acute) Social History Social History Substance History: No History of Abuse Smoking Status: Current every day smoker Tobacco Type: Cigarettes How Often Do You Have a Drink Containing Alcohol: 2 to 4 times a month Recent Travel in [facility] within the Last 8 Weeks: No Recent Out of Country Travel within the Last 8 Weeks: No Immunization History Tetanus Immunization: Unsure Exam Narrative Exam Narrative: GENERAL: Thin , well-developed patient who is short of breath. SKIN: Focused skin assessment reveals no rash and nodules. Skin is Warm and dry. HEAD: Atraumatic. Normocephalic. EYES: Pupils equal and round. No scleral icterus. No injection or drainage. ENT: No nasal bleeding or discharge. Mucous membranes pink and moist. NECK: Trachea midline. No JVD. CARDIOVASCULAR: Regular rate and rhythm. No murmur appreciated. RESPIRATORY: No accessory muscle use. Some expiratory wheezing and diminished breath sounds throughout. Breath sounds equal bilaterally. GASTROINTESTINAL: Abdomen soft, non-tender, nondistended. Hepatic and splenic margins not palpable. MUSCULOSKELETAL: No obvious deformities. No clubbing. No cyanosis. No edema. NEUROLOGICAL: Awake and alert. No obvious cranial nerve deficits. Motor grossly within normal limits. Normal speech. PSYCHIATRIC: Appropriate mood and affect; insight and judgment poor . Course Initial Documented Vital Signs Temperature 98.8 F 03/03/18 17:42 Pulse Rate 97 H 03/03/18 17:42 Respiratory Rate 26 H 03/03/18 17:42 Blood Pressure 171/79 H 03/03/18 17:42 Pulse Oximetry 88 L 03/03/18 17:42 Last Documented Vital Signs Temperature 98.8 F 03/03/18 17:42 Pulse Rate 97 H 03/03/18 18:20 Respiratory Rate 20 03/03/18 18:20 Blood Pressure 160/74 H 03/03/18 17:44 Pulse Oximetry 94 L 03/03/18 18:00 Medical Decision Making MDM Narrative Medical decision making narrative: 59-year-old female with COPD still smokes and did not use her nebulizer today. She complains of shortness of breath. She is wheezing and congested and presentation is consistent with acute exacerbation of chronic COPD. I have ordered lab studies and a chest x-ray. I placed her on oxygen and gave her a series of 3 nebulizer treatments and IV Solu-Medrol. Patient has normal CBC. She has hyponatremia which is chronic. Chest x-ray shows possibly a small right-sided infectious infiltrate. After round of nebulizers she has some marginal improvement but is still hypoxic on room air. I took her off the oxygen she drops down to 88 promptly. She is mid 90s on a cannula. She will be admitted for acute exacerbation of chronic COPD. I will start her on some Zithromax Medical Screen Exam Complete: Yes Emergency Medical Condition: Yes Differential Diagnosis Differential Diagnosis: Differential diagnosis includes COPD, asthma, pneumonia , bronchitis, PE. Medical Records Medical records reviewed: Yes I reviewed the patient's medical records. Lab Data Lab results reviewed: Yes I reviewed the patient's lab results. Lab results narrative: Normal CBC and hyponatremia on metabolic study Result diagrams: 03/03/18 17:58 03/03/18 17:58 Lab Results 03/03/18 03/03/18 Range/Units 17:58 17:58 CBC w Diff Auto diff final WBC 6.0 (4.0-11.0) th/mm3 RBC 4.50 (4.00-5.30) mil/mm3 Hgb 14.1 (11.6-15.3) gm/dL Hct 42.6 (35.0-46.0) % MCV 94.7 (80.0-100.0) fL MCH 31.4 (27.0-34.0) pg MCHC 33.1 (32.0-36.0) % RDW 13.3 (11.6-17.2) % Plt Count 224 (150-450) th/mm3 MPV 6.6 L (7.0-11.0) fL Neut % (Auto) 65.1 (16.0-70.0) % Lymph % (Auto) 22.4 (9.0-44.0) % [place] % (Auto) 8.1 H (0.0-8.0) % Eos % (Auto) 1.0 (0.0-4.0) % Baso % (Auto) 3.4 H (0.0-2.0) % Neut # (Auto) 3.9 (1.8-7.7) th/mm3 Lymph # (Auto) 1.3 (1.0-4.8) th/mm3 [place] # (Auto) 0.5 (0.0-0.9) th/mm3 Eos # (Auto) 0.1 (0.0-0.4) th/mm3 Baso # (Auto) 0.2 (0.0-0.2) th/mm3 WBC Differential . Differential Comment . Sodium 128 L (136-145) meq/L Potassium 4.4 (3.5-5.1) meq/L Chloride 91 L (98-107) meq/L Carbon Dioxide 31.5 (21.0-32.0) meq/L Anion Gap 6 (5-15) meq/L BUN 11 (7-18) mg/dL Creatinine 0.67 (0.50-1.00) mg/dL Estimated GFR 88 L (>89) mL/min Random Glucose 108 H (74-106) mg/dL Calcium 7.8 L (8.5-10.1) mg/dL Imaging Data Attestation: I personally reviewed and interpreted this imaging study as follows : My impression: COPD with possible small right-sided infiltrate Radiologist's impression: Chest X-Ray 03/03/18 17:46 CONCLUSION: 1. COPD 2. New small infiltrate in the right upper lung suggestive of pneumonia. Discharge Plan Discharge Disposition Patient Disposition: ED Admit(ED Internal Use Only) Discharge Details Diagnosis: COPD with acute lower respiratory infection, COPD with acute exacerbation Physicians Team ED Provider: Broderick Hinkle Rxs /Orders / Referrals /Forms Prescriptions: No Action albuterol sulfate 1.25 mg/3 mL Solution For Nebulization 1.25 mg INHALATION QID RF: 0 albuterol sulfate [Ventolin HFA] 90 mcg/actuation Hfa Aerosol Inhaler 1 puff INHALATION Q4-6H PRN (Reason: Wheezing) RF: 0 [id number]-[id number]-hawkxcbf [Trelegy Ellipta] 100-62.5-25 mcg Blister With Device 1 inh INHALATION DAILY RF: 0 Wellbutrin XL 150 mg PO DAILY RF: 0 Discharge Interventions Interventions: Vital Signs Last Done: 03/03/18 17:44 Status ED Status: With Doctor
--- NOTE | 2018-03-03 18:02 | XR ---
EXAM DATE: 03/03/2018 5:59 PM EST AGE/SEX: 67 years / Female INDICATIONS: Shortness of breath. CLINICAL DATA: This is the patient's initial encounter. Patient reports that signs and symptoms have been present for 1 day and indicates a pain score of Nonresponsive. MEDICAL/SURGICAL HISTORY: Chronic obstructive pulmonary disease. Hypertension. None. COMPARISON: [facility], CHEST SINGLE AP, 03/07/2017. . FINDINGS: There is hyperaeration of both lung bowers. There is a new small infiltrate in the right upper lung c ompared to the prior examination. There is stable chronic interstitial changes bilaterally. The heart size is within normal limits. There are no pleural effusions. The bony structures are stable. CONCLUSION: 1. COPD 2. New small infiltrate in the right upper lung suggestive of pneumonia. Electronically signed by: Nnamdi Montano MD Board Certified Radiologist 03/03/2018 6:01 PM EST
[2018-03-03 18:04] LABS: Baso # (Auto) 0.2 th/mm3 (0.0-0.2); Baso % (Auto) 3.4 % (0.0-2.0); Eos # (Auto) 0.1 th/mm3 (0.0-0.4); Hematocrit 42.6 % (35.0-46.0); Hemoglobin 14.1 gm/dL (11.6-15.3); Lymph # (Auto) 1.3 th/mm3 (1.0-4.8); Lymph % (Auto) 22.4 % (9.0-44.0); Mean Corpuscular HGB Conc 33.1 % (32.0-36.0); Mean Corpuscular Hemoglobin 31.4 pg (27.0-34.0); Mean Corpuscular Volume 94.7 fL (80.0-100.0); Mean Platelet Volume 6.6 fL (7.0-11.0); Mono # (Auto) 0.5 th/mm3 (0.0-0.9); Mono % (Auto) 8.1 % (0.0-8.0); Neut # (Auto) 3.9 th/mm3 (1.8-7.7); Neut % (Auto) 65.1 % (16.0-70.0); Platelet Count 224 th/mm3 (150-450); Red Cell Distribution Width 13.3 % (11.6-17.2)
[2018-03-03 18:11] LABS: Potassium 4.4 meq/L (3.5-5.1)
[2018-03-03 18:13] LABS: Calcium 7.8 mg/dL (8.5-10.1)
[2018-03-03 18:14] LABS: Carbon Dioxide 31.5 meq/L (21.0-32.0)
[2018-03-03] MEDS ORDERED: Azithromycin Inj 500 MG in Sodium Chlor 0.9% Inj 250 ML IV.SIG ONE (18:42)
[2018-03-03] MEDS ORDERED: Bisacodyl 10 MG Supp RECTAL PRN (19:41)
[2018-03-03] MEDS ORDERED: Acetaminophen 325 MG Tablet PO PRN (19:41)
[2018-03-03] MEDS: Enoxaparin Inj 30 MG/0.3 ML Syringe SQ SCH (20:47)
[2018-03-03] MEDS: MethylPREDNISolone Sod Succinate Inj 40 MG/ML Vial IV.PUSH SCH (20:49)
[2018-03-03] MEDS: Senna/Docusate Sodium 8.6/50 MG Tablet PO SCH (21:55)
[2018-03-04] MEDS: MethylPREDNISolone Sod Succinate Inj 40 MG/ML Vial IV.PUSH SCH ×4 (01:52→21:31)
[2018-03-04 08:33] LABS: Baso % (Auto) 0.1 % (0.0-2.0); Eos % (Auto) 0.1 % (0.0-4.0); Hematocrit 45.4 % (35.0-46.0); Hemoglobin 14.8 gm/dL (11.6-15.3); Lymph # (Auto) 0.1 th/mm3 (1.0-4.8); Lymph % (Auto) 3.9 % (9.0-44.0); Mean Corpuscular HGB Conc 32.6 % (32.0-36.0); Mean Corpuscular Volume 95.2 fL (80.0-100.0); Mean Platelet Volume 6.8 fL (7.0-11.0); Mono % (Auto) 0.7 % (0.0-8.0); Neut # (Auto) 3.2 th/mm3 (1.8-7.7); Neut % (Auto) 95.2 % (16.0-70.0); Platelet Count 195 th/mm3 (150-450); Red Blood Count 4.76 mil/mm3 (4.00-5.30); Red Cell Distribution Width 12.9 % (11.6-17.2); White Blood Count 3.3 th/mm3 (4.0-11.0)
[2018-03-04 08:40] LABS: Potassium 4.5 meq/L (3.5-5.1)
[2018-03-04] MEDS: buPROPion 150 MG 12 HR Tablet PO SCH (08:53)
[2018-03-04] MEDS: Senna/Docusate Sodium 8.6/50 MG Tablet PO SCH ×2 (08:53→21:31)
[2018-03-04] MEDS: Azithromycin 250 MG Tablet PO SCH (08:53)
[2018-03-04] MEDS ORDERED: WELLBUTRIN 150 MG PO SCH (09:00)
--- NOTE | 2018-03-04 09:33 | P.HP ---
History of Present Illness Primary Care Physician: Rozina Reyes DO Chief Complaint: Shortness of breath History of Present Illness: This is a very pleasant 67-year-old female patient with no medical history of COPD and tobacco abuse presented to the ED with complaints of shortness of breath times 2 days. Patient states over the past 2 days she has become increasingly short of breath especially with activities. She does use a nebulizer at home, has been using it more often the past couple days. Does admit to a chronic cough, does state that her phlegm is been clear in color. Denies any recent fever, chills, chest pain, abdominal pain, nausea, vomiting, diarrhea or dysuria. Patient does state that she has been hospitalized roughly yearly for COPD exacerbation, states that her last hospitalization was last . She has recently moved down here from [place], has not established with a brownfield redevelopment specialist. Does follow closely with her PCP. Denies any recent antibiotic or steroid use. Does continue to smoke, roughly a pack a day. She states that she is going to try to attempt to quit again. - Diagnosis (1) COPD with acute exacerbation Inpatient Certification: I certify that the inpatient services were ordered in accordance with Medicare regulations governing the order. This includes certification that hospital inpatient services are reasonable and necessary and in the case of services not specified as inpatient-only under 42 CFR 419.22(n), that they are appropriately provided as inpatient services in accordance to with the 2-midnight benchmark under 43 CFR 412.3(e) Estimated Total Length of Stay (Days): 2 Plans for Post Hospital Care: Home Review of Systems All other systems reviewed negative except as stated [facility] - History History Provided By: Patient - Medical History Medical History: Medical History (Last Reviewed 03/04/18 @ 09:28 by Frances Johnson) History of depression - Surgical History Surgical History: Surgical History (Last Reviewed 03/04/18 @ 09:28 by Frances Johnson) History of ankle surgery Hx of appendectomy Hx of tonsillectomy - Family History Family History: Family History (Last Updated 03/04/18 @ 09:29 by Frances Johnson) Other Family history non-contributory - Social History I have reviewed the patient's Social History: Yes - Tobacco History Second Hand Smoke Exposure: Yes Tobacco Use In Past 30 Days: Yes Smoking Status: Current every day smoker Tobacco Type: Cigarettes - Alcohol History How Often Do You Have a Drink Containing Alcohol: 2 to 4 times a month - Substance Use History Substance History: No History of Abuse - Travel History Recent Travel in the [place] Within the Last 8 Weeks: No Recent Travel Out of the Country Within the Last 8 Weeks: No - Immunization History Tetanus Immunization: Unsure Hx Influenza Vaccine This Season: Yes Medications and Allergies Active Medications: Active Medications Acetaminophen (Tylenol) 650 mg PO Q4H PRN PRN Reason: Temp > 100.4 Al Hydroxide/Mg Hydroxide (Milk Of Magnesia Liq) 30 ml PO Q12H PRN PRN Reason: Mild Constipation Albuterol (Albuterol Neb (Prn)) 2.5 mg NEB Q2HR NEB PRN PRN Reason: SHORTNESS OF BREATH Albuterol (Duoneb Neb (Jenny)) 1 ampul NEB Q6HR NEB JENNY Last Admin: 03/04/18 03:30 Dose: 1 ampul Azithromycin (Zithromax) 500 mg PO DAILY [facility] Stop: 03/06/18 09:01 Last Admin: 03/04/18 08:53 Dose: 500 mg Bisacodyl (Dulcolax Supp) 10 mg RECTAL DAILY PRN PRN Reason: SEVERE CONSITIPATION Bupropion HCl (Wellbutrin Sr) 150 mg PO DAILY [facility], [facility] Last Admin: 03/04/18 08:53 Dose: 150 mg Enoxaparin Sodium (Lovenox Inj) 30 mg SQ Q24H [facility] Last Admin: 03/03/18 20:47 Dose: 30 mg Ceftriaxone Sodium 1,000 mg/ (Sodium Chloride) 100 mls @ 200 mls/hr IV.SIG Q24H [facility], [facility] Last Infusion: 03/03/18 21:14 Dose: Infused Lactulose (Lactulose Liq) 30 ml PO DAILY PRN PRN Reason: SEVERE CONSITIPATION Methylprednisolone Sodium Succinate (Solumedrol Inj) 60 mg IV.PUSH Q6H [facility] Last Admin: 03/04/18 08:52 Dose: 60 mg Ondansetron HCl (Zofran Inj) 4 mg IV.PUSH Q6H PRN PRN Reason: NAUSEA OR VOMITING Senna/Docusate Sodium (Radha-Colace) 1 tab PO BID [facility] Last Admin: 03/04/18 08:53 Dose: 1 tab Sennosides (Senokot) 17.2 mg PO Q12H PRN PRN Reason: Moderate Constipation Sodium Chloride (Ns Flush) 2 ml IV.FLUSH PRN PRN PRN Reason: FLUSH AFTER USING IV ACCESS Sodium Chloride (Ns Flush) 2 ml IV.FLUSH BID [facility] Last Admin: 03/04/18 08:53 Dose: 2 ml Sodium Chloride (Ns Flush) 2 ml IV.FLUSH BID [facility] Last Admin: 03/04/18 08:53 Dose: Not Given Sodium Chloride (Ns Flush) 2 ml IV.FLUSH PRN PRN PRN Reason: FLUSH AFTER USING IV ACCESS Allergies Allergy/AdvReac Type Severity Reaction Status Date / Time Sulfa (Sulfonamide Allergy Severe Nausea/Vomi Verified 03/03/18 17:45 Antibiotics) ting codeine Allergy Mild Nausea/Vomi Verified 03/03/18 17:45 ting Home Medications Medication Instructions Recorded Confirmed Type Wellbutrin XL 150 mg PO DAILY 03/03/18 03/03/18 History albuterol sulfate 1.25 mg INHALATION QID 03/03/18 03/03/18 History albuterol sulfate [Ventolin HFA] 1 puff INHALATION Q4-6H PRN 03/03/18 03/03/18 History [id number] 1 inh INHALATION DAILY 03/03/18 03/03/18 History [Trelegy Ellipta] Exam Vital signs: Vital Signs 03/03/18 17:42 03/03/18 17:44 03/03/18 17:57 Temperature 98.8 F Pulse Rate 97 H 96 H Respiratory Rate 26 H 18 Blood Pressure 171/79 H 160/74 H Pulse Oximetry 88 L 99 96 03/03/18 18:00 03/03/18 18:10 03/03/18 18:20 Temperature Pulse Rate 86 90 97 H Respiratory Rate 24 20 20 Blood Pressure Pulse Oximetry 94 L 03/03/18 19:00 03/03/18 20:10 03/03/18 20:52 Temperature Pulse Rate 108 H 102 H Respiratory Rate 18 18 Blood Pressure 142/68 H 136/67 Pulse Oximetry 96 03/03/18 21:30 03/03/18 21:37 03/03/18 22:04 Temperature 97.6 F Pulse Rate 104 H 104 H 104 H Respiratory Rate 18 18 18 Blood Pressure 144/74 H 139/65 Pulse Oximetry 91 L 94 L 03/04/18 00:00 03/04/18 03:30 03/04/18 08:00 Temperature 96.6 F L 97.0 F L Pulse Rate 103 H 106 H 108 H Respiratory Rate 17 16 17 Blood Pressure 122/70 142/71 H Pulse Oximetry 95 92 L Intake & Output 03/03/18 03/04/18 03/04/18 18:59 06:59 18:59 Intake Total 590 / 590 Balance 590 / 590 Weight 43.5 kg 42.9 kg Intake: IV 350 / 350 Azithromycin Inj 500 MG In NS 250 / 250 Inj 250 ML @ 250 mls/hr IV.SIG ONCE ONE Rx#:[id number] Rocephin Inj 1,000 MG In NS Inj 100 / 100 100 ML @ 200 mls/hr IV.SIG Q24H JENNY Rx#:[id number] Oral 240 / 240 Other: Weight On Admission 43.545 kg Narrative: GENERAL: Well-developed, well-nourished patient in [facility]. SKIN: Warm and dry. No rash. HEAD: Normocephalic. Atraumatic. EYES: Pupils equal and round. No scleral icterus. No injection or drainage. ENT: No nasal bleeding or discharge. Mucous membranes pink and moist. NECK: Supple. Trachea midline. CARDIOVASCULAR: Regular rate and rhythm. S1, S2 noted. No murmur appreciated. RESPIRATORY: No accessory muscle use. Expiratory wheezing in anterior/ posterior bases. Breath sounds equal bilaterally. GASTROINTESTINAL: Abdomen soft, non-tender, nondistended. Normoactive bowel sounds x4. MUSCULOSKELETAL: No obvious deformities. Extremities without clubbing, cyanosis , or edema. NEUROLOGICAL: Awake and alert. No obvious cranial nerve deficits. Motor grossly within normal limits. 5/5 muscle strength in bilateral upper and lower extremities. Normal speech. PSYCHIATRIC: Appropriate mood and affect; insight and judgment normal. Results - Labs CBC & Chem 7: 03/04/18 07:00 03/04/18 07:00 Labs: Laboratory Results - last 24 hr 03/03/18 03/03/18 03/04/18 17:58 17:58 07:00 CBC w Diff Auto diff final Auto diff final WBC 6.0 3.3 L RBC 4.50 4.76 Hgb 14.1 14.8 Hct 42.6 45.4 MCV 94.7 95.2 MCH 31.4 31.0 MCHC 33.1 32.6 RDW 13.3 12.9 Plt Count 224 195 MPV 6.6 L 6.8 L Neut % (Auto) 65.1 95.2 H Lymph % (Auto) 22.4 3.9 L Lee % (Auto) 8.1 H 0.7 Eos % (Auto) 1.0 0.1 Baso % (Auto) 3.4 H 0.1 Neut # (Auto) 3.9 3.2 Lymph # (Auto) 1.3 0.1 L Lee # (Auto) 0.5 0.0 Eos # (Auto) 0.1 0.0 Baso # (Auto) 0.2 0.0 WBC Differential . . Differential Comment . . Sodium 128 L Potassium 4.4 Chloride 91 L Carbon Dioxide 31.5 Anion Gap 6 BUN 11 Creatinine 0.67 Estimated GFR 88 L Random Glucose 108 H Calcium 7.8 L 03/04/18 07:00 CBC w Diff WBC RBC Hgb Hct MCV MCH MCHC RDW Plt Count MPV Neut % (Auto) Lymph % (Auto) Lee % (Auto) Eos % (Auto) Baso % (Auto) Neut # (Auto) Lymph # (Auto) Lee # (Auto) Eos # (Auto) Baso # (Auto) WBC Differential Differential Comment Sodium 130 L Potassium 4.5 Chloride 92 L Carbon Dioxide 30.0 Anion Gap 8 BUN 14 Creatinine 0.93 Estimated GFR 60 L Random Glucose 275 H D Calcium 8.0 L - Imaging Impressions Chest X-Ray 03/03/18 17:46 CONCLUSION: 1. COPD 2. New small infiltrate in the right upper lung suggestive of pneumonia. Caprini VTE Risk Assessment Caprini VTE Risk Assessment: Moderate/High Risk (score >= 2) Caprini Risk Assessment Model: Point Value = 1 Point Value = 2 Point Value = 3 Point Value = 5 Age 41-60 Minor surgery BMI > 25 kg/m2 Swollen legs Varicose veins or History of unexplained or recurrent spontaneous Oral contraceptives or hormone replacement Sepsis (< 1 month) Serious lung disease, including pneumonia (< 1 month) Abnormal pulmonary function Acute myocardial infarction Congestive heart failure (< 1 month) History of inflammatory bowel disease Medical patient at bed rest Age 61-74 Arthroscopic surgery Major open surgery (> 45 min) Laparoscopic surgery (> 45 min) Malignancy Confined to bed (> 72 hours) Immobilizing plaster cast Central venous access Age >= 75 History of VTE Family history of VTE Factor V Leiden Prothrombin [id number] Lupus anticoagulant Anticardiolipin antibodies Elevated serum homocysteine Heparin-induced thrombocytopenia Other congenital or acquired thrombophilia Stroke (< 1 month) Elective arthroplasty Hip, pelvis, or leg fracture Acute spinal cord injury (< 1 month) Prophylaxis Regimen: Total Risk Factor Score Risk Level Prophylaxis Regimen 0-1 Low Early ambulation 2 Moderate Order ONE of the following: *Sequential Compression Device (SCD) *Heparin 5000 units SQ BID 3-4 Higher Order ONE of the following medications: *Heparin 5000 units SQ TID *Enoxaparin/Lovenox 40 mg SQ daily (WT < 150 kg, CrCl > 30 mL/min) *Enoxaparin/Lovenox 30 mg SQ daily (WT < 150 kg, CrCl > 10-29 mL/min) *Enoxaparin/Lovenox 30 mg SQ BID (WT < 150 kg, CrCl > 30 mL/min) AND/OR *Sequential Compression Device (SCD) 5 or more Highest Order ONE of the following medications: *Heparin 5000 units SQ TID (Preferred with Epidurals) *Enoxaparin/Lovenox 40 mg SQ daily (WT < 150 kg, CrCl > 30 mL/min) *Enoxaparin/Lovenox 30 mg SQ daily (WT < 150 kg, CrCl > 10-29 mL/min) *Enoxaparin/Lovenox 30 mg SQ BID (WT < 150 kg, CrCl > 30 mL/min) AND *Sequential Compression Device (SCD) Assessment and Plan - Assessment (1) COPD with acute exacerbation Code(s): J44.1 - Chronic obstructive pulmonary disease with (acute) exacerbation Status: Acute - Plan This is a 67-year-old female patient presented to the ED with: COPD with exacerbation with hypoxia and need for supplemental O2 Right upper lobe community-acquired pneumonia -Patient complained of 2 day history of shortness of breath. She does have a history of COPD, uses nebulizer at home. -Supplemental O2 as needed, to keep oxygen saturations greater than 92%. Currently requiring 2L nasal cannula. -Duo nebs scheduled and as needed for shortness of breath. Continue home inhalers. -Patient was started on ceftriaxone and azithromycin, will continue. -Patient continue on IV steroids scheduled. Will wean. -Chest x-ray reviewed showing COPD with small infiltrate in the right upper lung suggestive of pneumonia. -CBC reviewed, essentially unremarkable. -Monitor for clinical improvement. Acute hyponatremia -NA 128 on presentation, 130 today. Will continue to monitor in the am. -Is unaware of any history of hyponatremia. Depression -Continue home Wellbutrin. Tobacco use/nicotine dependence: Approximately 7 minutes was spent counseling the patient cessation techniques. She understands continuing to smoke to stroke and and worsening of COPD. The benefits of stopping were also presented to her. Patient has verbalized her desire to give it a try regarding smoking cessation and its benefits. Nicotine patch offered, not needed at this time. DVT prophylaxis: SCDs. Lovenox.
[2018-03-04] MEDS: Enoxaparin Inj 30 MG/0.3 ML Syringe SQ SCH (21:31)
[2018-03-05] MEDS: MethylPREDNISolone Sod Succinate Inj 40 MG/ML Vial IV.PUSH SCH ×3 (01:03→18:11)
[2018-03-05 06:55] LABS: Potassium 4.6 meq/L (3.5-5.1)
[2018-03-05 07:00] LABS: Carbon Dioxide 33.2 meq/L (21.0-32.0)
[2018-03-05] MEDS: buPROPion 150 MG 12 HR Tablet PO SCH (08:34)
[2018-03-05] MEDS: Azithromycin 250 MG Tablet PO SCH (08:34)
[2018-03-05] MEDS: Senna/Docusate Sodium 8.6/50 MG Tablet PO SCH ×2 (08:35→20:24)
[2018-03-05] MEDS ORDERED: TRELEGY ELLIPTA INH SCH (09:00)
--- NOTE | 2018-03-05 10:25 | P.PNIM ---
Subjective Interval history: Follow-up COPD exacerbation and pneumonia. Patient seen and examined, lying in bed comfortably no apparent distress. O2 weaned down to 1 L nasal cannula. Continued incentive spirometer and duo nebs. No acute events overnight. She does feel improved. Continued wheezing. Vital signs stable. Afebrile. Physical Exam Vital signs: Vital Signs 03/04/18 12:00 03/04/18 15:17 03/04/18 16:00 Temperature 96.6 F L 97.7 F Pulse Rate 102 H 90 117 H Respiratory Rate 16 16 17 Blood Pressure 139/60 147/71 H Pulse Oximetry 94 L 96 03/04/18 20:00 03/04/18 22:05 03/05/18 00:00 Temperature 97.2 F L 97.0 F L Pulse Rate 107 H 88 86 Respiratory Rate 20 18 20 Blood Pressure 138/64 132/61 Pulse Oximetry 90 L 96 95 03/05/18 03:08 03/05/18 04:00 03/05/18 08:00 Temperature 96.8 F L 96.7 F L Pulse Rate 86 89 78 Respiratory Rate 18 20 18 Blood Pressure 151/74 H 140/69 Pulse Oximetry 96 95 03/05/18 10:07 Temperature Pulse Rate 86 Respiratory Rate 19 Blood Pressure Pulse Oximetry 96 Intake & Output 03/04/18 03/05/18 03/05/18 18:59 06:59 18:59 Intake Total 960 / 960 340 / 340 Balance 960 / 960 340 / 340 Weight 43.5 kg 43.4 kg Intake: IV 100 / 100 Rocephin Inj 1,000 MG In NS Inj 100 / 100 100 ML @ 200 mls/hr IV.SIG Q24H LEODAN Rx#:[id number] Oral 960 / 960 240 / 240 Other: # Voids 5 2 # Bowel Movements 1 Narrative: GENERAL: Well-developed, well-nourished patient in [facility]. SKIN: Warm and dry. No rash. HEAD: Normocephalic. Atraumatic. EYES: Pupils equal and round. No scleral icterus. No injection or drainage. ENT: No nasal bleeding or discharge. Mucous membranes pink and moist. NECK: Supple. Trachea midline. CARDIOVASCULAR: Regular rate and rhythm. S1, S2 noted. No murmur appreciated. RESPIRATORY: No accessory muscle use. Expiratory wheezing in anterior/ posterior bases. Breath sounds equal bilaterally. GASTROINTESTINAL: Abdomen soft, non-tender, nondistended. Normoactive bowel sounds x4. MUSCULOSKELETAL: No obvious deformities. Extremities without clubbing, cyanosis , or edema. NEUROLOGICAL: Awake and alert. No obvious cranial nerve deficits. Motor grossly within normal limits. 5/5 muscle strength in bilateral upper and lower extremities. Normal speech. PSYCHIATRIC: Appropriate mood and affect; insight and judgment normal. Results - Labs CBC & Chem 7: 03/04/18 07:00 03/05/18 05:50 Laboratory Results - last 24 hr 03/05/18 05:50 Sodium 133 L Potassium 4.6 Chloride 93 L Carbon Dioxide 33.2 H Anion Gap 7 BUN 16 Creatinine 0.82 Estimated GFR 69 L Random Glucose 164 H D Calcium 8.0 L Assessment and Plan - Assessment (1) COPD with acute exacerbation Code(s): J44.1 - Chronic obstructive pulmonary disease with (acute) exacerbation Status: Acute - Plan This is a 67-year-old female patient presented to the ED with: COPD with exacerbation with hypoxia and need for supplemental O2 Right upper lobe community-acquired pneumonia -Patient complained of 2 day history of shortness of breath. She does have a history of COPD, uses nebulizer at home. -Supplemental O2 as needed, to keep oxygen saturations greater than 92%. Currently requiring 1L nasal cannula. -Duo nebs scheduled and as needed for shortness of breath. Continue home inhalers. -Patient was started on ceftriaxone and azithromycin, will continue. -Patient continue on IV steroids scheduled. Will wean. -Chest x-ray reviewed showing COPD with small infiltrate in the right upper lung suggestive of pneumonia. -CBC reviewed, essentially unremarkable. -Monitor for clinical improvement. Acute hyponatremia. Improving. -NA 128 on presentation, 133 today. Depression -Continue home Wellbutrin. Tobacco use/nicotine dependence: Cessation encouraged. Nicotine patch offered, not needed at this time. DVT prophylaxis: SCDs. Lovenox. Discharge Planning: Awaiting clinical improvement.
[2018-03-05] MEDS ORDERED: MethylPREDNISolone Sod Succinate Inj 40 MG/ML Vial IV.PUSH SCH ×2 (11:00→18:00)
[2018-03-05] MEDS ORDERED: Enoxaparin Inj 30 MG/0.3 ML Syringe SQ SCH (18:00)
--- NOTE | 2018-03-05 18:53 | ECG ---
Date Performed: 03/04/2018 Time Performed: 11:02:19 PTAGE: 67 years EKG: SINUS TACHYCARDIA MINIMAL VOLTAGE CRITERIA FOR LVH, CONSIDER NORMAL VARIANT ABNORMAL RHYTHM ECG PREVIOUS TRACING : 03/07/2017 21.50 Since the previous tracing, no significant change noted DOCTOR: Eliazar Murillo Interpretating Date/Time 03/05/2018 18:51:59
[2018-03-06] MEDS: MethylPREDNISolone Sod Succinate Inj 40 MG/ML Vial IV.PUSH SCH (02:06)
[2018-03-06 06:46] LABS: Baso % (Auto) 0.1 % (0.0-2.0); Eos % (Auto) 0.1 % (0.0-4.0); Hematocrit 41.2 % (35.0-46.0); Hemoglobin 13.8 gm/dL (11.6-15.3); Lymph # (Auto) 0.2 th/mm3 (1.0-4.8); Lymph % (Auto) 2.2 % (9.0-44.0); Mean Corpuscular HGB Conc 33.5 % (32.0-36.0); Mean Corpuscular Volume 95.5 fL (80.0-100.0); Mean Platelet Volume 6.7 fL (7.0-11.0); Mono # (Auto) 0.1 th/mm3 (0.0-0.9); Mono % (Auto) 1.2 % (0.0-8.0); Neut # (Auto) 9.6 th/mm3 (1.8-7.7); Neut % (Auto) 96.4 % (16.0-70.0); Platelet Count 178 th/mm3 (150-450); Red Blood Count 4.31 mil/mm3 (4.00-5.30); Red Cell Distribution Width 12.9 % (11.6-17.2); White Blood Count 9.9 th/mm3 (4.0-11.0)
[2018-03-06 07:00] LABS: Potassium 4.3 meq/L (3.5-5.1)
[2018-03-06 07:03] LABS: Carbon Dioxide 34.7 meq/L (21.0-32.0)
[2018-03-06] MEDS ORDERED: MethylPREDNISolone Sod Succinate Inj 40 MG/ML Vial IV.PUSH SCH (09:00)
[2018-03-06 09:01] VITALS: RESP 20
--- NOTE | 2018-03-06 09:23 | P.DS ---
Date of admission: 03/03/18 19:43 Primary care physician: Rozina Reyes DO Anticipated date of discharge: 03/06/18 Brief History from admission: This is a very pleasant 67-year-old female patient with no medical history of COPD and tobacco abuse presented to the ED with complaints of shortness of breath times 2 days. Patient states over the past 2 days she has become increasingly short of breath especially with activities. She does use a nebulizer at home, has been using it more often the past couple days. Does admit to a chronic cough, does state that her phlegm is been clear in color. Denies any recent fever, chills, chest pain, abdominal pain, nausea, vomiting, diarrhea or dysuria. Patient does state that she has been hospitalized roughly yearly for COPD exacerbation, states that her last hospitalization was last . She has recently moved down here from [place], has not established with a emergency planning and response manager. Does follow closely with her PCP. Denies any recent antibiotic or steroid use. Does continue to smoke, roughly a pack a day. She states that she is going to try to attempt to quit again. Patient update on day of discharge: Follow up pna and copd. Patient seen and examined, sitting up in bed comfortably without shortness of breath. Does feel improved since yesterday. Failed home walk test, will order for home O2. Afebrile. VSS. DS: Diagnosis - Discharge Diagnosis (1) COPD with acute exacerbation Status: Acute DS: Medications - Discharge Medications Prescriptions: ipratropium-albuterol 1 amp NEB Q6HR WHILE AWAKE NEB PRN 30 Days ml PRN Reason: Shortness Of Breath Or Wheezing levofloxacin [Levaquin] 750 mg PO DAILY 7 Days #7 tab prednisone 20 mg PO DAILY 4 Days #4 tab DS: Summary Hospital Course: This is a 67-year-old female patient presented to the ED with COPD with exacerbation with hypoxia and need for supplemental O2 and right upper lobe community-acquired pneumonia. Patient complained of 2 day history of shortness of breath. She does have a history of COPD, uses nebulizer at home. Supplemental O2 as needed, to keep oxygen saturations greater than 92%. Duo nebs scheduled and as needed for shortness of breath. Continue home inhalers. Patient was started on ceftriaxone and azithromycin, was given steroids and antibiotics on dc. Chest x-ray reviewed showing COPD with small infiltrate in the right upper lung suggestive of pneumonia. CBC reviewed, essentially unremarkable. Patient did have acute hyponatremia which improved on day of discharge. Patient also history of depression was continued on home Wellbutrin. Patient has a history of tobacco use and nicotine dependence, cessation encouraged. Patient states she stopped smoking now. DC home follow- up PCP and get referred to emergency planning and response manager outpatient. Home O2 per case management assisting. Rx is written. Activity as tolerated. Diet as tolerated. - Time Spent with Patient Total time spent providing and/or coordinating discharge services: Greater than 30 minutes - Quality: VTE Deep Vein Thrombosis/Pulmonary Embolism Present on Admission: No Exam Vital signs: Vital Signs 03/05/18 10:07 03/05/18 12:00 03/05/18 14:39 Temperature 97.2 F L Pulse Rate 86 83 99 H Respiratory Rate 19 18 20 Blood Pressure 129/70 Pulse Oximetry 96 95 Pulse Oximetry [Resting on Room Air] Pulse Oximetry [Resting with Oxygen] 03/05/18 15:51 03/05/18 20:00 03/05/18 20:50 Temperature 96.0 F L 97.1 F L Pulse Rate 102 H 109 H 79 Respiratory Rate 18 18 18 Blood Pressure 150/94 H 153/85 H Pulse Oximetry 95 93 L 94 L Pulse Oximetry [Resting on Room Air] Pulse Oximetry [Resting with Oxygen] 03/06/18 00:00 03/06/18 00:09 03/06/18 04:00 Temperature 95.5 F L 97.2 F L Pulse Rate 80 82 89 Respiratory Rate 18 18 Blood Pressure 158/70 H 144/68 H Pulse Oximetry 95 97 Pulse Oximetry [Resting on Room Air] Pulse Oximetry [Resting with Oxygen] 03/06/18 07:25 03/06/18 08:17 Temperature Pulse Rate 78 Respiratory Rate 20 Blood Pressure Pulse Oximetry 94 L Pulse Oximetry [Resting on Room Air] 87 L Pulse Oximetry [Resting with Oxygen] 94 L Intake & Output 03/05/18 03/06/18 03/06/18 18:59 06:59 18:59 Intake Total 520 / 520 Output Total 1200 / 1200 Balance -680 / -680 Weight 46.8 kg Intake: IV 100 / 100 Rocephin Inj 1,000 MG In NS Inj 100 / 100 100 ML @ 200 mls/hr IV.SIG Q24H LEODAN Rx#:[id number] Oral 420 / 420 Output: Urine 1200 / 1200 Other: # Voids 7 Date of Last Bowel Movement 03/05/18 # Bowel Movements 0 Narrative: GENERAL: Well-developed, well-nourished patient in [facility]. SKIN: Warm and dry. No rash. HEAD: Normocephalic. Atraumatic. EYES: Pupils equal and round. No scleral icterus. No injection or drainage. ENT: No nasal bleeding or discharge. Mucous membranes pink and moist. NECK: Supple. Trachea midline. CARDIOVASCULAR: Regular rate and rhythm. S1, S2 noted. No murmur appreciated. RESPIRATORY: No accessory muscle use. Breath sounds clear to auscultation. Breath sounds equal bilaterally. GASTROINTESTINAL: Abdomen soft, non-tender, nondistended. Normoactive bowel sounds x4. MUSCULOSKELETAL: No obvious deformities. Extremities without clubbing, cyanosis , or edema. NEUROLOGICAL: Awake and alert. No obvious cranial nerve deficits. Motor grossly within normal limits. 5/5 muscle strength in bilateral upper and lower extremities. Normal speech. PSYCHIATRIC: Appropriate mood and affect; insight and judgment normal. Results Procedures completed during hospitalization: See above. Labs on day of discharge: Labs from last 24 hours 03/06/18 03/06/18 05:35 05:35 CBC w Diff Auto diff final WBC 9.9 RBC 4.31 Hgb 13.8 Hct 41.2 MCV 95.5 MCH 32.0 MCHC 33.5 RDW 12.9 Plt Count 178 MPV 6.7 L Neut % (Auto) 96.4 H Lymph % (Auto) 2.2 L Wayne % (Auto) 1.2 Eos % (Auto) 0.1 Baso % (Auto) 0.1 Neut # (Auto) 9.6 H Lymph # (Auto) 0.2 L Wayne # (Auto) 0.1 Eos # (Auto) 0.0 Baso # (Auto) 0.0 WBC Differential . Differential Comment . Sodium 135 L Potassium 4.3 Chloride 94 L Carbon Dioxide 34.7 H Anion Gap 6 BUN 19 H Creatinine 0.73 Estimated GFR 79 L Random Glucose 134 H Calcium 8.0 L - Impressions ITS Impressions Chest X-Ray 03/03/18 17:46 CONCLUSION: 1. COPD 2. New small infiltrate in the right upper lung suggestive of pneumonia. Discharge Plan - Discharge Disposition Patient Disposition: 01 Discharge Home - Discharge Condition Condition: Stable - Discharge Order Discharge Orders: Discharge Order (Routine); Ordered 03/06/18 Ordered By: Frances Johnson ED Use Only Admit Order (Routine); Ordered 03/03/18 Ordered By: Broderick Hinkle - Discharge Details Anticipated Discharge Date: 03/06/18 Discharge Comment: OK TO DC ONCE HOME O2 ARRANGED - Physicians Team Primary Care Provider: Rozina Reyes Attending Provider: Ivan Lucero
--- NOTE | 2018-03-06 09:29 | P.DCO ---
- Diagnosis (1) Pneumonia Status: Acute (2) COPD with acute exacerbation Status: Acute - Home Health Nursing Order: Medical education, Signs/symptoms of disease process, Oxygen administration education, Medication education-adverse effect, Nursing assessment with vital signs - Case Management Consult Case Management Consult-Home Health: Yes - Certification I have seen patient Elias Jones on 03/06/18. My clinical findings support the need for the requested home health care services because: Patient has SOB I certify that my clinical findings support that this patient is homebound because: Hx COPD - exertion dyspnea/weakness
[2018-03-06] MEDS: Senna/Docusate Sodium 8.6/50 MG Tablet PO SCH (09:56)
[2018-03-06] MEDS: buPROPion 150 MG 12 HR Tablet PO SCH (09:57)
[2018-03-06] MEDS: Azithromycin 250 MG Tablet PO SCH (09:57)
[2018-03-06 12:58] VITALS: TEMP 97.7; O2SAT 95
[2018-03-06 13:48] VITALS: PULSE 100
[2018-03-06] MEDS ORDERED: Lisinopril 5 MG Tablet PO ONE (14:23)
[2018-03-06 15:25] VITALS: BP 167/96
== END 2018-03-06 16:03 | disposition home or self-care (01) | DRG 190 ==
LOC: PHED 17:38 → PHEDA 19:43 → PH3 21:23
PROVIDERS: ADMIT Internal Medicine; ATTEND Internal Medicine
CPT/HCPCS: 71010; 71045; 80048; 85025; 87070; 87205; 90774; 93005; 94150; 94618; 94620; 94640; 94664; 94665; 96374; 99285; C8952; J0456; J0696; J1650; J2920; J2930; J7050